=== PATIENT | female | born 1975 | race Two or more races ===

== ENCOUNTER 2020-06-13 21:19 | Emergency (ER) | payer SELFPAY ==
[2020-06-13 21:27] VITALS: BP 141/98; PULSE 117; RESP 18; TEMP 37; O2SAT 99; BMI 28.2
[2020-06-13 22:00] VITALS: PULSE 67; RESP 18; O2SAT 99
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
== END 2020-06-13 22:49 | disposition home or self-care (01) ==
PROVIDERS: Emergency Provider Emergency Medicine Emergency Medical Services; PCP Internal Medicine
DX: F10.920 Alcohol use, unspecified with intoxication, uncomplicated (principal)
CPT/HCPCS: 99284

== ENCOUNTER 2021-09-29 00:48 | Emergency (ER) | payer OTHER, SELFPAY ==
[2021-09-29 00:58] VITALS: BP 130/70; BP 131/76; PULSE 81; PULSE 90; RESP 15; TEMP 36.8; O2SAT 97; BMI 27.8
[2021-09-29 01:35] LABS: Amphetamine Screen Urine Not Detected (Not Detect); Barbiturates, Urine Not Detected (Not Detect); Benzodiazepines Screen Urine Not Detected (Not Detect); Cannabinoid Screen Urine Not Detected (Not Detect); Cocaine Screen Urine Not Detected (Not Detect); Fentanyl, urine Not Detected (Not Detect); Opiate Screen Urine Not Detected (Not Detect); Phencyclidine Screen Urine Not Detected (Not Detect)
--- NOTE | 2021-09-29 02:12 | ED_ITS ---
HPI - Alcohol General Chief Complaint: ETOH/Substance Use Stated Complaint: etoh Time Seen by Provider: 09/29/21 02:05 Mode of arrival: EMS Limitations: altered mental status History of Present Illness HPI narrative: 46-year-old female who was brought to the emergency department by ambulance for evaluation of acute alcohol intoxication. The patient was found outside of a bar and appear to be intoxicated. The police were called an ambulance was dispatched to bring the patient to the emergency department. When she got here she was acutely intoxicated she appeared to be very anxious and could not give a history. She became agitated, she was having difficulty staying on the stretcher. Therefore the patient was given Ativan 2 mg orally for her anxiety and Haldol 10 mg orally for her agitation. She is placed on a cardiac and O2 saturation monitor. Related Data Home Medications Medication Instructions Recorded Confirmed acamprosate 333 mg tablet,delayed 2 tab PO TID 09/29/21 09/29/21 release naltrexone 50 mg tablet 1 tab PO DAILY 09/29/21 09/29/21 Allergies Allergy/AdvReac Type Severity Reaction Status Date / Time No Known Allergies Allergy Verified 09/29/21 02:10 Review of Systems Verdana 4l Review of Systems: Yes all other systems are reviewed and Verdana 4d are negative [facility] Past Medical History Source: unable to obtain (Secondary to alcohol intoxication) Medical History (Updated 09/29/21 @ 08:08 by Kris Kc MD) No known health problems Surgical History No history of previous surgery Social History Social History Alcohol intake: current Alcohol intake frequency: 0-2 drinks per day Alcohol type: beer Patient Tobacco Use Status: Never used Tobacco Use of substances other than those prescribed or required for medical reasons: No Advance Directives: No Advance Directives Information Provided: No Patient : No Physical Exam Verdana 4l Vital Signs: Verdana 4d Verdana 4d Vital Signs: Verdana 4d Verdana 4Bd Last Vital Signs Verdana 4d 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 HENMT: Head: Yes normal to inspection, Yes normocephalic and Yes atraumatic Ears: external ears normal General nose exam: Normal external nose present Face and sinus: Yes normal facial exam Mouth: Normal oral and palatal mucosa present Throat: Yes posterior oropharynx normal Eyes: General: appearance normal, both eyes and all related structures Neck: Neck: Yes normal visual inspection, Yes no lymphadenopathy, Yes trachea midline and Yes supple Chest: Chest palpation & inspection: normal inspection of the chest and normal palpation of entire chest wall Resp: Effort & Inspection: normal respiratory effort and able to speak in complete sentences Auscultation: clear to auscultation bilaterally Cardio: Rate: regular rate Rhythm: regular rhythm Heart sounds: S1 normal heart sound present, S2 normal heart sound present and no murmurs GI: Inspection: Yes normal to inspection Palpation (GI): Soft to palpation, nontender and no guarding Auscultation: normal bowel sounds : General: Yes no CVA tenderness Back/Spine/Pelvis: Back: no CVA tenderness Skin: General skin exam: no rashes or lesions noted Neuro: Other: Patient appears to be anxious and is agitated, she was oriented to person, she is acutely intoxicated, she moves all her extremities symmetrically Extrem: General: Yes normal to inspection Psych: Appearance: grossly normal Affect: Anxious affect present and Other affect and mood findings present (Agitated) Course Course Course Narrative: 46-year-old female who was brought to the emergency department for evaluation of acute alcohol intoxication. Patient was found outside of a bar, police were contacted an ambulance was dispatched to bring the patient to the emergency department for evaluation. On presentation, she was acutely intoxicated she appeared to be very anxious and agitated. Her exam was otherwise unremarkable. Patient was given Ativan 2 mg orally for her anxiety and Haldol 10 mg orally for her agitation. She was placed on a cardiac rehabilitation program director and O2 saturation monitor and observed for 7 hours. During this time she remained stable. She is now awake and alert. She told me that this is happened to her before and she does binge drink. She states she is not interested in getting into a detox program. The patient will be discharged home. MDM - Alcohol Lab Data Labs: Lab Results 09/29/21 Range/Units 01:06 Urine Opiates Screen Not Detected (Not Detect) Urine Fentanyl Screen Not Detected (Not Detect) Ur Barbiturates Screen Not Detected (Not Detect) Ur Phencyclidine Scrn Not Detected (Not Detect) Ur Amphetamines Screen Not Detected (Not Detect) U Benzodiazepines Scrn Not Detected (Not Detect) Urine Cocaine Screen Not Detected (Not Detect) U Marijuana (THC) Screen Not Detected (Not Detect) Discharge Plan Discharge Clinical Impression: Alcoholic intoxication Patient Disposition: Home, Self-Care Instructions: Alcohol Use Disorder (ED), Alcohol Intoxication (ED) Prescriptions: No Action naltrexone 50 mg tablet 1 tab PO DAILY 0RF acamprosate 333 mg tablet,delayed release (DR/EC) 2 tab PO TID 0RF
[2021-09-29] MEDS: HaloperidoL 5 MG TABLET 10 MG PO (02:20)
[2021-09-29] MEDS: diphenhydrAMINE HCL 25 MG TABLET 50 MG PO (02:20)
--- NOTE | 2021-09-29 02:22 | PC.NURSE ---
Medication per Mar and notified Nurse. Will Continue to monitor.
[2021-09-29 04:08] VITALS: PULSE 88; RESP 16; O2SAT 97
[2021-09-29 06:03] VITALS: PULSE 89; RESP 16; O2SAT 98
--- NOTE | 2021-09-29 07:54 | PC.NURSE ---
pt being reassessed by er provider at this time. pt has been sleeping since previous medication administration, per previous shift rn.
== END 2021-09-29 10:33 | disposition home or self-care (01) ==
PROVIDERS: Emergency Provider Emergency Medicine Emergency Medical Services
DX: F10.920 Alcohol use, unspecified with intoxication, uncomplicated (principal); Y90.9 Presence of alcohol in blood, level not specified; R45.1 Restlessness and agitation; F41.9 Anxiety disorder, unspecified
CPT/HCPCS: 80307; 96360; 99285; Q0163

== ENCOUNTER 2021-10-26 01:56 | Emergency (ER) | payer OTHER, SELFPAY ==
[2021-10-26] VITALS (8 sets, daily range): BP systolic 96–184; BP diastolic 56–119; PULSE 77–101; RESP 12–18; TEMP 37; O2SAT 95–100; BMI 27.3
--- NOTE | 2021-10-26 03:44 | ED.ALCOHOL ---
HPI - Alcohol General Chief Complaint: ETOH/Substance Use Stated Complaint: etoh Time Seen by Provider: 10/26/21 03:44 Source: patient Mode of arrival: EMS History of Present Illness HPI narrative: 46-year-old female with extensive history of PTSD as well as alcohol intoxication and patient states that she was drinking tonight because she was unable to sleep due to her prior trauma history. She is brought in by EMS. And has no other acute complaints at this time. She is noted to be restless. Related Data Home Medications Medication Instructions Recorded Confirmed acamprosate 333 mg tablet,delayed 2 tab PO TID 09/29/21 09/29/21 release naltrexone 50 mg tablet 1 tab PO DAILY 09/29/21 09/29/21 Allergies Allergy/AdvReac Type Severity Reaction Status Date / Time No Known Allergies Allergy Verified 09/29/21 02:10 Review of Systems Review of Systems: Pertinent positives and negatives as stated in HPI 10 point review of systems is otherwise negative. PMFSH Past Medical History Source: nursing notes reviewed Medical History No known health problems Surgical History No history of previous surgery Social History Social History Alcohol intake: current Alcohol intake frequency: 0-2 drinks per day Alcohol type: beer Patient Tobacco Use Status: Never used Tobacco Advance Directives: No Advance Directives Information Provided: Yes Physical Exam ED Vital Signs: Vital Signs - 24 hr 10/26/21 02:10 10/26/21 04:13 10/26/21 05:56 Temperature 98.6 F Pulse Rate 77 101 H 79 Respiratory Rate 16 18 12 Blood Pressure 111/78 184/119 H 96/56 L Pulse Oximetry 98 96 98 10/26/21 06:08 Temperature Pulse Rate 78 Respiratory Rate 13 Blood Pressure 106/61 Pulse Oximetry 98 BMI result Body Mass Index 27.3 VITAL SIGNS: Reviewed. GENERAL: Intoxicated, anxious, Well developed, well nourished HEAD: Normocephalic/atraumatic EYES: PERRLA, EOMI OROPHARYNX: no oral lesions noted, posterior pharynx clear LUNGS: Normal breath sounds. No adventitious sounds or accessory muscle use. SpO2<98> CARDIOVASCULAR: Regular rate and rhythm without noted murmurs ABDOMEN: Soft, non-tender, non-distended with bowel sounds. SKIN: Inspection of the skin reveals no rashes NEUROLOGIC: Alert and oriented x 3. Strength and sensation to light touch were grossly intact x 4. Course Course Course Narrative: 46-year-old female with history and clinical presentation consistent with alcohol intoxication secondary to PTSD symptoms. 0405: Patient was extremely agitated and made multiple attempts to leave the emergency department and she is clearly not sober. Patient was noted to be kicking and punching staff, verbally abusive and required chemical restraint. Patient received 2 mg of Ativan as well as 5 mg of Haldol IM. Good results were obtained with spontaneous respiration and patient was placed on the monitor. 0505: Patient resting comfortably, calm and cooperative, arousable. Blood pressure was noted to be low and 1 L of IV fluids was administered. Reevaluation(s) Reevaluation #1: Patient placed in physician observation because the patient needed more time to become sober. At the time observation was started the patient's vital signs were stable, patient is arousable and oriented, neuro: Nonfocal, CV RRR, lungs clear Time: 06:50 Discharge Plan Discharge Clinical Impression: Alcoholic intoxication, Chronic posttraumatic stress disorder Patient Disposition: Still a Patient Prescriptions: No Action naltrexone 50 mg tablet 1 tab PO DAILY 0RF acamprosate 333 mg tablet,delayed release (DR/EC) 2 tab PO TID 0RF
[2021-10-26] MEDS: LORazepam 2 MG/ML VIAL IM (04:05)
[2021-10-26] MEDS: Haloperidol Lactate 5 MG/ML VIAL IM (04:05)
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
--- NOTE | 2021-10-26 05:24 | PC.NURSE ---
As documented on pt's chemical restraint form, pt hypotensive, dr mcclain aware. this rn established PIV and initiated a liter bolus of NS per v/o from dr mcclain.
[2021-10-26] MEDS: 0.9 % Sodium Chloride 1,000 ML 999 ML IV (05:27)
--- NOTE | 2021-10-26 15:00 | MHC.CARE ---
CARE Team met with Pt to discuss mental health and substance use resources. Pt declined interest in resources at this time. Pt denied SI/HI/AH/VH. Pt aware of crisis information.
== END 2021-10-26 13:44 | disposition home or self-care (01) ==
PROVIDERS: Emergency Provider Student in an Organized Health Care Education/Training Program
DX: F10.129 Alcohol abuse with intoxication, unspecified (principal); F43.10 Post-traumatic stress disorder, unspecified; Y90.8 Blood alcohol level of 240 mg/100 ml or more; Z79.899 Other long term (current) drug therapy
CPT/HCPCS: 96360; 96372; 99284; 99285; J2060

== ENCOUNTER 2021-10-30 22:52 | Emergency (ER) | payer OTHER, SELFPAY ==
[2021-10-30 23:06] VITALS: BP 125/81; BP 132/78; PULSE 76; PULSE 80; RESP 16; TEMP 36.6; O2SAT 98; O2SAT 99; BMI 25.9
--- NOTE | 2021-10-30 23:23 | PC.NURSE ---
PT refused to provide urine sample when she went to the bathroom.
--- NOTE | 2021-10-30 23:53 | ED.ALCOHOL ---
HPI - Alcohol General Chief Complaint: ETOH/Substance Use Stated Complaint: etoh Time Seen by Provider: 10/30/21 23:50 History of Present Illness HPI narrative: Patient had few drinks earlier in the democrat was found sleeping in the apartment building hallway patient denies any substance abuse able to ambulate with steady gait no vomiting no injuries family is at home Related Data Home Medications Medication Instructions Recorded Confirmed acamprosate 333 mg tablet,delayed 2 tab PO TID 09/29/21 09/29/21 release naltrexone 50 mg tablet 1 tab PO DAILY 09/29/21 09/29/21 Allergies Allergy/AdvReac Type Severity Reaction Status Date / Time No Known Allergies Allergy Verified 09/29/21 02:10 Review of Systems Review of Systems: Yes all other systems are reviewed and are negative [facility] Past Medical History Medical History No known health problems Surgical History No history of previous surgery Social History Social History Alcohol intake: current Alcohol intake frequency: 0-2 drinks per day Alcohol type: beer Patient Tobacco Use Status: Never used Tobacco Advance Directives: No Patient : No Physical Exam ED Vital Signs: Vital Signs - 24 hr 10/30/21 23:06 Temperature 97.8 F Pulse Rate 76 Respiratory Rate 16 Blood Pressure 125/81 Pulse Oximetry 98 BMI result Body Mass Index 25.9 Appearance: Alert. Oriented X3. No acute distress. etoh++ Eyes: PERRLA, No Nystagmus HEENT: Pharynx normal. Oral Mucosa moist atraumatic normocephalic Neck: Normal inspection. Neck supple. CVS: Normal heart rate and rhythm. Pulses normal. Respiratory: No respiratory distress. Equal air entry bilateral, no wheezing/rales/rhonchi Abdomen: Soft and nontender. Bowel sounds are present, no mass palpable, no CVA tenderness Skin: Skin warm and dry. Normal skin color. Normal skin turgor. Extremities: No lower extremity edema. No calf tenderness Neuro: Oriented X 3. No motor deficit. No sensory deficit.No cerebellar signs , cranial nerves II-XII intact steady gait MDM - Alcohol MDM Narrative Medical decision making narrative: Patient not regular alcoholic intoxicated in the democr[place] patient knows her address family is at home walking is steady gait will get UBER Discharge Plan Discharge Clinical Impression: Alcoholic intoxication Patient Disposition: Home, Self-Care Instructions: Alcohol Intoxication (ED) Additional Instructions: Do not drink over excess amount If you have drinking problem please follow detox Prescriptions: No Action naltrexone 50 mg tablet 1 tab PO DAILY 0RF acamprosate 333 mg tablet,delayed release (DR/EC) 2 tab PO TID 0RF
--- NOTE | 2021-10-30 23:58 | PC.NURSE ---
PT called to have family member pick her up from ED.
== END 2021-10-31 00:04 | disposition home or self-care (01) ==
LOC: HO.ED 23:55
PROVIDERS: Emergency Provider Internal Medicine
DX: F10.220 Alcohol dependence with intoxication, uncomplicated (principal); Y90.9 Presence of alcohol in blood, level not specified
CPT/HCPCS: 99283

== ENCOUNTER 2022-01-08 01:00 | Emergency (ER) | payer OTHER, SELFPAY ==
--- NOTE | ~2022-01-08 | CT_ITS ---
EXAMINATION: NONCONTRAST HEAD CT NONCONTRAST MAXILLOFACIAL CT NONCONTRAST CERVICAL SPINE CT INDICATION INFORMATION: Fall. Intoxicated. COMPARISON: None TECHNIQUE: Separate noncontrast CT examinations of the head, maxillofacial bones, and cervical spine were performed. Coronal and sagittal images were created for each examination at the technologist workstation. This CT examination was performed using dose optimization techniques as appropriate, variously including the following: *Automated exposure control *Adjustment of mA and/or kV according to patient size (this includes techniques or standardized protocols for targeted exams where dose is matched to indication/reason for exam; i.e. extremities or head) *Use of iterative reconstruction technique DLP: 1639 mGy-cm FINDINGS: Head: There is no evidence of acute intracranial hemorrhage or territorial infarction. No abnormal mass effect or midline shift is seen. Crooks to white matter differentiation is well preserved. No extra-axial fluid collections are identified. No hydrocephalus. No significant volume loss. There is no abnormal attenuation within the brain parenchyma. No acute soft tissue abnormality. No calvarial fracture. The mastoid air cells are well aerated. Maxillofacial: No acute maxillofacial fractures are seen. The pterygoid plates are intact. The lamina papyracea are intact. The zygomatic arches are intact. The nasal bone is intact. The orbital rims are intact. The mandible is intact. The frontal, maxillary, ethmoid, and sphenoid sinuses are well aerated. The uncinate process is normal bilaterally. The infundibula and middle meati are patent. The nasal septum is midline. The mandibular heads are well-seated in the condylar fossa. The orbits demonstrate a normal appearance bilaterally. The globes are intact, and there are no suspicious findings to suggest retrobulbar hemorrhage. Cervical spine: There is anatomic alignment of the vertebral bodies and posterior elements. The atlantoaxial and atlantooccipital articulations are intact. Vertebral body heights and intervertebral disc spaces are maintained. No evidence of acute fracture. No prevertebral soft tissue swelling. Visualized portions of the lung apices are unremarkable. The thyroid gland is unremarkable. CT/CT cervical spine wo con IMPRESSION: 1. No acute intracranial finding. 2. No maxillofacial fracture. 3. No fracture or malalignment of the cervical spine.
[2022-01-08 01:13] VITALS: BP 132/86; PULSE 18; RESP 18; O2SAT 98; BMI 27.4
[2022-01-08 01:27] VITALS: BP 120/68; PULSE 90; RESP 18; TEMP 36.3; O2SAT 97
[2022-01-08 01:29] LABS: Glucose, Whole Blood 95 mg/dL (60-115)
--- NOTE | 2022-01-08 02:06 | ED_ITS ---
HPI - Alcohol General Chief Complaint: ETOH/Substance Use Stated Complaint: ETOH Time Seen by Provider: 01/08/22 02:02 Source: patient Mode of arrival: EMS History of Present Illness HPI narrative: This is a 46-year-old female with alcohol use disorder who was noted to be intoxicated at the bar and as staff was trying to call 911 the patient walked out and had a witnessed fall with head strike. On arrival EMS notes that there is a lump to the right forehead. Patient is noted be slurring her words and has an unsteady gait. Related Data Home Medications Medication Instructions Recorded Confirmed acamprosate 333 mg tablet,delayed 2 tab PO TID 09/29/21 09/29/21 release naltrexone 50 mg tablet 1 tab PO DAILY 09/29/21 09/29/21 Allergies Allergy/AdvReac Type Severity Reaction Status Date / Time No Known Allergies Allergy Verified 09/29/21 02:10 Review of Systems Review of Systems: Pertinent positives and negatives as stated in HPI 10 point review of systems otherwise negative. PMFSH Past Medical History Source: nursing notes reviewed Medical History No known health problems Surgical History No history of previous surgery Social History Social History Alcohol intake: current Alcohol intake frequency: 0-2 drinks per day Alcohol type: beer Patient Tobacco Use Status: Never used Tobacco Advance Directives: No Advance Directives Information Provided: No Physical Exam ED Vital Signs: Vital Signs - 24 hr 01/08/22 01:13 01/08/22 01:27 01/08/22 04:00 Temperature 97.4 F Pulse Rate 18 L 90 Respiratory Rate 18 18 20 Blood Pressure 132/86 120/68 Pulse Oximetry 98 97 01/08/22 06:28 Temperature 97.8 F Pulse Rate 77 Respiratory Rate Blood Pressure 126/57 L Pulse Oximetry 98 BMI result Body Mass Index 27.4 VITAL SIGNS: Reviewed. GENERAL: Well developed, well nourished, in no acute distress. HEAD: Normocephalic/contusion right forehead EYES: PERRLA, EOMI EARS: Ext canals without abnormality OROPHARYNX: no oral lesions noted, posterior pharynx clear LUNGS: Normal breath sounds. No adventitious sounds or accessory muscle use. SpO2<98> CARDIOVASCULAR: Regular rate and rhythm without noted murmurs ABDOMEN: Soft, non-tender, non-distended with bowel sounds. SKIN: Inspection of the skin reveals no rashes NEUROLOGIC: Alert and oriented x 4. Strength and sensation to light touch were grossly intact x 4, no neurological deficits other than slurred speech secondary to alcohol intoxication. Course Course Course Narrative: 46-year-old female with history and clinical presentation consistent with alcohol intoxication and on review of all investigations otherwise negative for acute findings. Patient received 25 mg of Librium and required bedside observation differently leaving the ER with a BA L-348. In the morning on re- evaluation patient is noted to have a steady gait, no longer slurring her speech, arrange for her transportation with [employer] service. MDM - Alcohol Lab Data Result diagrams: 01/08/22 03:05 01/08/22 03:05 Labs: Lab Results 01/08/22 01/08/22 01/08/22 Range/Units 01:24 03:05 03:05 WBC 6.3 (4.8-10.8) X10*3/uL RBC 4.09 L (4.20-5.50) X10*6/uL Hgb 14.4 (12.0-16.0) g/dl Hct 40.4 (37.0-47.0) % MCV 98.8 H (80.0-98.0) fL MCH 35.2 H (27.0-33.0) pg MCHC 35.6 H (31.0-35.0) g/dl RDW 12.1 (11.0-16.0) % Plt Count 215 (160-400) X10*3/uL MPV 10.2 (9.4-12.3) fL Immature Gran % (Auto) 0.2 (0.0-0.4) % Neut % (Auto) 55.5 (45-73) % Lymph % (Auto) 34.4 (20-40) % Catron % (Auto) 7.1 (2-11) % Eos % (Auto) 1.7 (0-4) % Baso % (Auto) 1.1 (0-2) % Lymph # (Auto) 2.2 (1.2-4.9) X10*3/uL Catron # (Auto) 0.5 (0.1-1.2) X10*3/uL Eos # (Auto) 0.1 (0.0-0.4) X10*3/uL Baso # (Auto) 0.1 (0.0-0.2) X10*3/uL Abs Immat Gran (auto) 0.01 (0.00-0.03) X10*3/uL Absolute Neuts (auto) 3.5 (2.0-8.3) x10*3/uL Absolute Nucleated RBC 0.000 (0.0-0.012) X10*3/uL Nucleated RBC % (auto) 0.0 (0.0-0.2) /100WBC Sodium 145 (135-145) mmol/L Potassium 4.0 (3.3-5.1) mmol/L Chloride 112 H (96-108) mmol/L Carbon Dioxide 24 (22-29) mmol/L Anion Gap 13 (12-20) BUN 13 (9-16) mg/dL Creatinine 0.96 (0.5-1.4) mg/dL Estim Creat Clear Calc 73.0 Estimated GFR > 60 POC Glucose 95 (60-115) mg/dL Random Glucose 114 (60-115) mg/dL Calcium 9.4 (8.4-10.2) mg/dL Total Bilirubin 0.3 (0.0-1.0) mg/dL AST 21 (5-31) U/L ALT 19 (0-31) U/L Alkaline Phosphatase 111 (39-117) U/L Total Protein 8.1 H (6.5-8.0) g/dL Albumin 4.5 (3.5-5.0) g/dL Lipase 44 (8-78) U/L Ethyl Alcohol mg/dL 01/08/22 Range/Units 03:05 WBC (4.8-10.8) X10*3/uL RBC (4.20-5.50) X10*6/uL Hgb (12.0-16.0) g/dl Hct (37.0-47.0) % MCV (80.0-98.0) fL MCH (27.0-33.0) pg MCHC (31.0-35.0) g/dl RDW (11.0-16.0) % Plt Count (160-400) X10*3/uL MPV (9.4-12.3) fL Immature Gran % (Auto) (0.0-0.4) % Neut % (Auto) (45-73) % Lymph % (Auto) (20-40) % Catron % (Auto) (2-11) % Eos % (Auto) (0-4) % Baso % (Auto) (0-2) % Lymph # (Auto) (1.2-4.9) X10*3/uL Catron # (Auto) (0.1-1.2) X10*3/uL Eos # (Auto) (0.0-0.4) X10*3/uL Baso # (Auto) (0.0-0.2) X10*3/uL Abs Immat Gran (auto) (0.00-0.03) X10*3/uL Absolute Neuts (auto) (2.0-8.3) x10*3/uL Absolute Nucleated RBC (0.0-0.012) X10*3/uL Nucleated RBC % (auto) (0.0-0.2) /100WBC Sodium (135-145) mmol/L Potassium (3.3-5.1) mmol/L Chloride (96-108) mmol/L Carbon Dioxide (22-29) mmol/L Anion Gap (12-20) BUN (9-16) mg/dL Creatinine (0.5-1.4) mg/dL Estim Creat Clear Calc Estimated GFR POC Glucose (60-115) mg/dL Random Glucose (60-115) mg/dL Calcium (8.4-10.2) mg/dL Total Bilirubin (0.0-1.0) mg/dL AST (5-31) U/L ALT (0-31) U/L Alkaline Phosphatase (39-117) U/L Total Protein (6.5-8.0) g/dL Albumin (3.5-5.0) g/dL Lipase (8-78) U/L Ethyl Alcohol 348 H* mg/dL Discharge Plan Discharge Clinical Impression: Alcoholic intoxication Patient Disposition: Home, Self-Care Instructions: Alcohol Intoxication (ED) Additional Instructions: Follow-up with your primary care provider. Prescriptions: No Action naltrexone 50 mg tablet 1 tab PO DAILY 0RF acamprosate 333 mg tablet,delayed release (DR/EC) 2 tab PO TID 0RF
[2022-01-08] MEDS: chlordiazePOXIDE HCl 25 MG CAPSULE PO (02:50)
[2022-01-08 03:09] LABS: MANUAL DIFF FLAG NO
[2022-01-08 03:11] LABS: Basophils Absolute Auto 0.1 X10*3/uL (0.0-0.2); Basophils Percent Auto 1.1 % (0-2); Eosinophils Absolute Auto 0.1 X10*3/uL (0.0-0.4); Eosinophils Percent Auto 1.7 % (0-4); Hematocrit 40.4 % (37.0-47.0); Hemoglobin 14.4 g/dl (12.0-16.0); Imm Gran Abs Auto 0.01 X10*3/uL (0.00-0.03); Imm Gran Pct Auto 0.2 % (0.0-0.4); Lymphocytes Absolute Auto 2.2 X10*3/uL (1.2-4.9); Lymphocytes Percent Auto 34.4 % (20-40); Mean Corpuscular HGB Conc 35.6 g/dl (31.0-35.0); Mean Corpuscular Hemoglobin 35.2 pg (27.0-33.0); Mean Corpuscular Volume 98.8 fL (80.0-98.0); Mean Platelet Volume 10.2 fL (9.4-12.3); Monocytes Absolute Auto 0.5 X10*3/uL (0.1-1.2); Monocytes Percent Auto 7.1 % (2-11); Neutrophils Absolute Auto 3.5 x10*3/uL (2.0-8.3); Neutrophils Percent Auto 55.5 % (45-73); Platelet Count 215 X10*3/uL (160-400); Red Blood Count 4.09 X10*6/uL (4.20-5.50); Red Cell Distribution Width 12.1 % (11.0-16.0); White Blood Count 6.3 X10*3/uL (4.8-10.8)
[2022-01-08 03:26] LABS: Ethanol 348 mg/dL
[2022-01-08 03:31] LABS: Alanine Aminotransferase 19 U/L (0-31); Albumin Level 4.5 g/dL (3.5-5.0); Alkaline Phosphatase 111 U/L (39-117); Anion Gap 13 (12-20); Aspartate Amino Transferase 21 U/L (5-31); Bilirubin Total 0.3 mg/dL (0.0-1.0); Blood Urea Nitrogen 13 mg/dL (9-16); Calcium 9.4 mg/dL (8.4-10.2); Carbon Dioxide 24 mmol/L (22-29); Chloride 112 mmol/L (96-108); Estimated Glomerular Filt Rate > 60; Glucose Random 114 mg/dL (60-115); Lipase 44 U/L (8-78); Sodium 145 mmol/L (135-145); Total Protein 8.1 g/dL (6.5-8.0)
[2022-01-08 04:00] VITALS: RESP 20
[2022-01-08 06:28] VITALS: BP 126/57; PULSE 77; TEMP 36.6; O2SAT 98
--- NOTE | 2022-01-08 07:05 | PC.NURSE ---
Report given to KWABENA Membreno
--- NOTE | 2022-01-08 07:31 | PC.NURSE ---
pt has a sober ride here, speech clear, steady gait, nad, no complaints, wants to leave now, spoke w pt and car pick up driver
== END 2022-01-08 07:35 | disposition home or self-care (01) ==
PROVIDERS: Emergency Provider Student in an Organized Health Care Education/Training Program
DX: F10.129 Alcohol abuse with intoxication, unspecified (principal); M54.2 Cervicalgia; R10.9 Unspecified abdominal pain; R51.9 Headache, unspecified; Y90.8 Blood alcohol level of 240 mg/100 ml or more; Z79.899 Other long term (current) drug therapy
CPT/HCPCS: 70450; 70486; 72125; 80053; 82077; 82947; 83690; 85025; 99284

== ENCOUNTER 2022-01-20 00:48 | Emergency (ER) | payer OTHER, SELFPAY ==
[2022-01-20] MEDS: HaloperidoL 5 MG TABLET PO (01:01)
[2022-01-20] MEDS: LORazepam 1 MG TABLET 2 MG PO (01:01)
[2022-01-20 01:03] VITALS: BP 145/90; PULSE 111; RESP 18; TEMP 36.5; O2SAT 96; BMI 26.0
--- NOTE | 2022-01-20 01:10 | PC.NURSE ---
Patient medicated per emar as noted.
--- NOTE | 2022-01-20 01:19 | PC.NURSE ---
Addendum entered by Rufina Higuera RN 01/20/22 01:20: 01:20 Patient also refusing all medication at this time. BERNARDA Boyer notified. Original Note: Patient refusing blood draws, BERNARDA Boyer at bedside.
[2022-01-20 01:21] VITALS: PULSE 95; RESP 16; O2SAT 96
--- NOTE | 2022-01-20 01:25 | ED_ITS ---
HPI - Alcohol General Chief Complaint: ETOH/Substance Use Stated Complaint: CRISIS/ETOH Time Seen by Provider: 01/20/22 01:01 Source: EMS Mode of arrival: EMS Limitations: altered mental status History of Present Illness HPI narrative: This is a 47-year-old female past medical history significant for alcohol abuse presenting to the emergency department via EMS with acute alcohol intoxication she presents via ambulance in 4 point restraints, kicking, screaming, uncooperative. Patient not providing us with history. When I ask her if she drink she said yes a lot, refusing to answer any questions she keeps telling me why does not matter , and ?I refuse . When I ask her if she has medical complaints she screams no at me. Patient smells like alcohol. According to report from EMS patient was found on the sidewalk resting, no evidence signs of trauma. Patient tells me she did not. MD complaint: alcohol intoxication and alcohol dependence Last drink: Just prior to admission Chronic alcohol use: Yes Previous visits for alcohol intoxication: Yes Recent trauma: Yes Treatments prior to arrival: none Related Data Home Medications Medication Instructions Recorded Confirmed acamprosate 333 mg tablet,delayed 2 tab PO TID 09/29/21 09/29/21 release naltrexone 50 mg tablet 1 tab PO DAILY 09/29/21 09/29/21 Allergies Allergy/AdvReac Type Severity Reaction Status Date / Time No Known Allergies Allergy Verified 09/29/21 02:10 Review of Systems Review of Systems: Yes Unobtainable due to mental status PMFSH Past Medical History Attestation statement: The following information was validated with the patient. Source: old records reviewed and nursing notes reviewed Medical History No known health problems Surgical History No history of previous surgery Social History Social History Alcohol intake: current Alcohol intake frequency: 0-2 drinks per day Alcohol type: beer Patient Tobacco Use Status: Never used Tobacco Physical Exam ED Vital Signs: Vital Signs - 24 hr 01/20/22 01:03 01/20/22 01:21 Temperature 97.7 F Pulse Rate 111 H 95 Respiratory Rate 18 16 Blood Pressure 145/90 H Pulse Oximetry 96 96 BMI result Body Mass Index 26.0 Patient tachycardic likely secondary to agitation, all other vital signs are stable Appearance: Alert.? Oriented X3.? Patient agitated, kicking, screaming, rolling around in the bed. Patient's smells like alcohol. Head: Normocephalic, atraumatic, no step-offs or deformities Eyes: Pupils equal, round and reactive to light.? Neck: Normal inspection.? Neck supple.? CVS: Regular rate, fast rhythm. Pulses normal.? Respiratory: No respiratory distress.? Breath sounds normal.? Abdomen: Soft and nontender.? Skin: Skin warm and dry.? Normal skin color.? Normal skin turgor.? Extremities: No lower extremity edema.? No calf ttp. 5/5 strength to bilateral upper and lower extremities Neuro: Oriented X 3.? No motor deficit.? No sensory deficit. CN 2-12 intact Course Reevaluation(s) Reevaluation #1: COVID negative. Patient continues to refuse laboratory studies and imaging. Sign out to Dr. Garcia. Time: 02:07 MDM - Alcohol [facility] Narrative Medical decision making narrative: 010 47-year-old uncooperative female presents with acute alcohol intoxication, found by police resting on the side walk. No medical complaints, uncooperative with history and physical exam. Physical examination significant for an uncooperative female, kicking, screaming, shouting. Abdomen soft nontender nondistended. Regular rate pass rhythm likely sinus tachycardia. Lungs clear. Neuro exam nonfocal. Plan at this time is basic labs, COVID, waiting for patient to sober up. Patient refusing labs,. Allowing for us to obtain COVID swab on her. Medical Records Attestation: I reviewed the patient's medical records. Lab Data Attestation: I reviewed the patient's lab results. Labs: Lab Results 01/20/22 Range/Units 01:16 COVID-19 ([facility]) Negative (Negative) COVID-19 Clin Com See Note Critical Care Time Critical Care Time Critical Care Time: No Discharge Plan Discharge Clinical Impression: Alcoholic intoxication Patient Disposition: Still a Patient Instructions: Abuse of Alcohol (DC), Abuse of Alcohol (ED), Alcohol Intox ication (ED), Alcohol Use Disorder (ED) Additional Instructions: Take your medications as prescribed. If you were prescribed antibiotics today, it is important that you take your medication to their entirety, do not skip any doses, do not finish them early. Follow-up with your primary care provider this week. Return to the emergency department with new or worsening symptoms. Such as fevers, chills, chest pain, shortness of breath, nausea, vomiting, dizziness, headache, vision changes, lethargy, weakness In case of emergency call 911 You do not want detox you told me. But if you change your mind please reach out to detox centers in the area. I put [employer] information on your discharge as well in case you need them. Prescriptions: No Action naltrexone 50 mg tablet 1 tab PO DAILY 0RF acamprosate 333 mg tablet,delayed release (DR/EC) 2 tab PO TID 0RF Referrals: [facility] [Provider Group] - 2 days
[2022-01-20 01:35] LABS: COVID-19 Test Negative (Negative)
[2022-01-20 02:00] VITALS: BP 145/90; PULSE 95; RESP 16; O2SAT 96
--- NOTE | 2022-01-20 03:07 | PC.NURSE ---
Patient is resting now but refused the CAT scan of her head without contrast. PA aware.
== END 2022-01-20 07:35 | disposition home or self-care (01) ==
PROVIDERS: Physician Assistant; Emergency Provider Emergency Medicine Emergency Medical Services
DX: F10.24 Alcohol dependence with alcohol-induced mood disorder (principal); Y90.8 Blood alcohol level of 240 mg/100 ml or more; Z20.822 Contact with and (suspected) exposure to COVID-19; Z79.899 Other long term (current) drug therapy
CPT/HCPCS: 87635; 99284

== ENCOUNTER 2022-01-25 07:27 | Emergency (ER) | payer OTHER, SELFPAY ==
[2022-01-25 07:46] VITALS: BP 151/94; PULSE 109; RESP 18; O2SAT 98; BMI 28.3
--- NOTE | 2022-01-25 08:00 | PC.NURSE ---
Unwilling to participate in [place] screening at this time. Will re-assess when pt is more cooperative.
[2022-01-25] MEDS: Acetaminophen 325 MG TABLET PO (09:37)
--- NOTE | 2022-01-25 10:32 | ED.PSYCH ---
HPI - Psych General Chief Complaint: Psychiatric Symptoms Stated Complaint: anxiety Time Seen by Provider: 01/25/22 08:41 Source: patient Mode of arrival: EMS History of Present Illness HPI Narrative: 47-year-old female with known use dependence disorder is brought in by EMS after being in at . She was found by the place laying on the ground slurring her words, she spent the night in police custody and was discharged to the ambulance due to ?anxiety and the need to take her seizure medications?. Patient reports that she needs to do something about her alcohol because she has children at home and wants to be there for them. She is afraid to go home because there is alcohol in the house. Related Data Home Medications Medication Instructions Recorded Confirmed escitalopram oxalate 20 mg tablet 1 tab PO DAILY 01/25/22 01/25/22 (Lexapro) hydroxyzine HCl 10 mg tablet 1 tab PO TID PRN 01/25/22 01/25/22 Allergies Allergy/AdvReac Type Severity Reaction Status Date / Time No Known Allergies Allergy Verified 09/29/21 02:10 Review of Systems Review of Systems: Pertinent positives and negatives as stated in HPI 10 point review of history is otherwise negative. PMFSH Past Medical History Source: nursing notes reviewed Medical History No known health problems Surgical History No history of previous surgery Social History Social History Alcohol intake: current Alcohol intake frequency: 3 or more drinks per day Alcohol type: beer Patient Tobacco Use Status: Never used Tobacco Advance Directives: No Advance Directives Information Provided: Yes Physical Exam Vital Signs: Vital Signs: Last Vital Signs Temp 97.7 F 01/25/22 15:29 Pulse 93 01/25/22 15:29 Resp 14 01/25/22 15:29 BP 140/78 H 01/25/22 15:29 Pulse Ox 96 01/25/22 15:29 BMI result Body Mass Index 28.3 VITAL SIGNS: Reviewed. GENERAL: Well developed, well nourished, in no acute distress. HEAD: Normocephalic/atraumatic EYES: PERRLA, EOMI EARS: Ext canals without abnormality OROPHARYNX: no oral lesions noted, posterior pharynx clear LUNGS: Normal breath sounds. No adventitious sounds or accessory muscle use. SpO2<98> CARDIOVASCULAR: Regular rate and rhythm without noted murmurs ABDOMEN: Soft, non-tender, non-distended with bowel sounds. MUSCULOSKELETAL: No tenderness, deformities, or effusions noted on gross inspection. EXTREMITIES: No cyanosis, clubbing or edema. SKIN: Inspection of the skin reveals no rashes NEUROLOGIC: Alert and oriented x 4. Strength and sensation to light touch were grossly intact x 4, cranial nerves 2-12 are grossly intact. PSYCH: Anxious, tearful Course Course Course Narrative: 47-year-old female with history and clinical presentation consistent with her underlying alcohol use disorder as well as alcohol intoxication and now agrees to entering into detox. She currently is scoring CIWA-3. Nothing heard back from [facility] your [place] and patient now wishes to leave and go home, she is not suicidal and is not a harm to herself or others and cannot be held against her will. She is currently hemodynamically stable will be discharged home. MDM - Psych Lab Data Labs: Lab Results 01/25/22 01/25/22 01/25/22 Range/Units 09:48 12:28 12:28 Urine Color YELLOW Urine Appearance CLOUDY Urine pH 6.0 (5.0-8.0) Ur Specific [place] 1.020 (1.005-1.025) Urine Protein NEG (NEG-TRACE) MG/DL Urine Glucose (UA) NEG (NEG) MG/DL Urine Ketones 15 (NEG) MG/DL Urine Blood TRACE (NEG) Urine Nitrite POS H (NEG) Ur Leukocyte Esterase 1+ H (NEG) Urine RBC 1-4 (0) /HPF Urine WBC 5-9 H (0-4) /HPF Ur Squamous Epith Cells 3+ /LPF Urine Bacteria 1+ /LPF Urine Test NEGATIVE (NEGATIVE) Urine Opiates Screen (Not Detect) Urine Fentanyl Screen (Not Detect) Ur Barbiturates Screen (Not Detect) Ur Phencyclidine Scrn (Not Detect) Ur Amphetamines Screen (Not Detect) U Benzodiazepines Scrn (Not Detect) Urine Cocaine Screen (Not Detect) U Marijuana (THC) Screen (Not Detect) Ethyl Alcohol 169 mg/dL 01/25/22 Range/Units 12:28 Urine Color Urine Appearance Urine pH (5.0-8.0) Ur Specific [place] (1.005-1.025) Urine Protein (NEG-TRACE) MG/DL Urine Glucose (UA) (NEG) MG/DL Urine Ketones (NEG) MG/DL Urine Blood (NEG) Urine Nitrite (NEG) Ur Leukocyte Esterase (NEG) Urine RBC (0) /HPF Urine WBC (0-4) /HPF Ur Squamous Epith Cells /LPF Urine Bacteria /LPF Urine Test (NEGATIVE) Urine Opiates Screen Not Detected (Not Detect) Urine Fentanyl Screen Not Detected (Not Detect) Ur Barbiturates Screen Not Detected (Not Detect) Ur Phencyclidine Scrn Not Detected (Not Detect) Ur Amphetamines Screen Not Detected (Not Detect) U Benzodiazepines Scrn Not Detected (Not Detect) Urine Cocaine Screen Not Detected (Not Detect) U Marijuana (THC) Screen Not Detected (Not Detect) Ethyl Alcohol mg/dL Discharge Plan Discharge Clinical Impression: Alcohol use disorder, severe, dependence, Alcohol intoxication, Anxiety Patient Disposition: Home, Self-Care Instructions: Alcohol Intoxication (ED), Alcohol Use Disorder (ED), Anxiety (ED) Additional Instructions: 1. Resume all home medications as prescribed. Return to the ER for any acute worsening of your symptoms. Prescriptions: No Action hydroxyzine HCl 10 mg tablet 1 tab PO TID PRN (Reason: Anxiety) 0RF escitalopram oxalate [Lexapro] 20 mg tablet 1 tab PO DAILY 0RF Referrals: Nora Fregoso MD [Primary Care Provider] -
[2022-01-25 11:51] LABS: Ethanol 169 mg/dL
[2022-01-25 12:46] LABS: Appearance Urine CLOUDY; Color Urine YELLOW; Glucose Urine UA NEG (NEG); Leukocyte Esterase Urine 1+ (NEG); Nitrite Urine POS (NEG); UACC Culture Trigger YES; Urine Blood TRACE (NEG); Urine Ketones 15 MG/DL (NEG); Urine Protein NEG (NEG-TRACE)
[2022-01-25 12:48] LABS: UPreg QC Valid YES; Urine Pregnancy NEGATIVE (NEGATIVE)
[2022-01-25 12:51] LABS: Squamous Epithelial Cell Urine 3+ /LPF
--- NOTE | 2022-01-25 12:51 | MHC.CARE ---
CARE Team met with Pt who presented to [facility] from [facility] custody due to alcohol intoxication. Pt reports problematic alcohol use and states if she goes home shes just going to do the same thing and worried she is stuck in this cycle. Pt is open to recovery support team for substance use resources.
[2022-01-25 12:52] LABS: Bacteria Urine 1+ /LPF
[2022-01-25 12:58] LABS: Amphetamine Screen Urine Not Detected (Not Detect); Barbiturates, Urine Not Detected (Not Detect); Benzodiazepines Screen Urine Not Detected (Not Detect); Cannabinoid Screen Urine Not Detected (Not Detect); Cocaine Screen Urine Not Detected (Not Detect); Fentanyl, urine Not Detected (Not Detect); Opiate Screen Urine Not Detected (Not Detect); Phencyclidine Screen Urine Not Detected (Not Detect)
--- NOTE | 2022-01-25 14:44 | MHC.RECOVSUP ---
Recovery Support note: Patient is a 47 year old Botswanan speaking female who presented to [facility] ED after police found her intoxicated in the community. Patient was seen by CARE Team and referred to this procedure writer for assistance getting into [facility]. Patient referred to [facility] and completed phone intake. This procedure writer is awaiting follow up from [facility] to confirm that patient has a bed. Discussed case with ED provider and RN.
[2022-01-25] MEDS: chlordiazePOXIDE HCl 5 MG CAPSULE 10 MG PO (14:49)
[2022-01-25 15:29] VITALS: BP 140/78; PULSE 93; RESP 14; TEMP 36.5; O2SAT 96
== END 2022-01-25 16:26 | disposition home or self-care (01) ==
PROVIDERS: Emergency Provider Student in an Organized Health Care Education/Training Program; PCP Internal Medicine
DX: F10.229 Alcohol dependence with intoxication, unspecified (principal); Y90.6 Blood alcohol level of 120-199 mg/100 ml; F41.9 Anxiety disorder, unspecified; Z79.899 Other long term (current) drug therapy
CPT/HCPCS: 36415; 80307; 81001; 81025; 82077; 87086; 87088; 87186; 99284

== ENCOUNTER → 2023-08-06 10:15 | Outpatient (BNV) | payer OTHER, SELFPAY | PROVIDERS: Visit Provider Psychiatry & Neurology Psychiatry | DX: F10.21 Alcohol dependence, in remission (principal); F31.9 Bipolar disorder, unspecified; F41.1 Generalized anxiety disorder | CPT/HCPCS: 90792; 99213 ==

== ENCOUNTER 2023-08-14 13:00 | Outpatient (RCR) | payer OTHER, SELFPAY ==
[2023-07-30 13:45] VITALS: BMI 29.9
[2023-07-30 14:46] VITALS: BP 117/82; PULSE 68; TEMP 36.8
--- NOTE | 2023-07-30 15:11 | PC.ADMIT ---
Patient is a 48 year old female who was referred to [facility] by her therapist d/t increased depression with passive SI (no plan or intent) and anxiety. Analisa is also struggling with ETOH use. Patient reports she drinks ETOH on the weekends drinking a bottle of wine or 1/2 bottle of Vodka. Patient is on MAT with Acamprosate however does not appear to be taking consistently. Medication education provided. Patient also attending AA meetings via zoom for more support. According to [facility] patient has a history of DUI's in 1999, 2011, and 2021 and lost her license as a result. Patient is alert and oriented x4. Calm and cooperative. Denied SI currently. I gave Analisa a copy of her safety plan if needed and reviewed it with her. Medications reconciled with patient and patient's pharmacy. She reports she does not take medications consistently and has not started some of her medications including Prazosin, Lexapro, and never picked up Abilify from the pharmacy. She plans on discussing medications with [facility] prescriber. Medication education provided.
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
--- NOTE | 2023-07-31 18:49 | HO.PHP ---
The client's case was reviewed and opened in treatment team.
--- NOTE | 2023-08-10 09:09 | P.PNPSP_ITS ---
Subjective Subjective Date of Service: 08/08/23 Reason For Visit: anxiety,depression,AUD Interim History: Patient seen for follow-up today. No acute concerns or issues. Reports having had a bad day yesterday, didn't make it to the program. She got up to get her kids ready for school and then went back to bed. She denies any alcohol use, said she slept until noon. Had a crying spell or two yesterday. Indicates her mood is still up and down . She confides she still has not started on the mood stabilizer. She says she picked it up this morning and plans to start tonight. Overall today is a better day, perhaps it is because she got enough sleep last night. I ask if she has any reservations about the medication which may be causing her delays with starting. (She started the program on 07/31 and her outpatient provider had already prescribed the medication for her, it's been almost 2 weeks and has not started on it). She asks about potential weight gain and cites this as a concern. WE discuss other options as well but in balance the risk for weight gain is lower than with other mood stabilizer in that class, and something we can certainly monitor. Could offer metformin or other options to mitigate weight gain, also could switch to another agent, however she may only require a small dose since it's being used in conjunction with an SSRI so I dont anticipate the need for a high dose, likely will remain at 5 mg or less, if tolerated. She reports alcohol abstainenance is good . Last use was the weekend prior to starting at [facility]. She denies any thoughts of harming herself or others. She will speak with Laina about printing up [facility] paperwork to give to this provider to get filled out, which is due on 09/13, however she anticipates her last day at [facility] next week. Medication Compliance: Yes Side effects from medications: No Attending Groups: Yes Review of Systems Acute medical concerns: No Mental Status Exam Mental Status Exam Narrative: Alert, oriented, in no acute distress. Casually dressed. Groomed.? Normal gait, no tics/tremors/dyskinesia, no psychomotor agitation or neurovegetative retardation. Calm, cooperative, forthcoming.? Eye contact. Mood is less depressed. Affect constricted, moments of brightening/ irritability.? Speech is normal rate, volume, prosody. No latency or pressured speech. Thought process is linaer, coherent without illogicality or FOI/VIKRAM. Thought content relevant to stressors. No gross evidence of psychosis. No thoughts of harming self or others. Cognition grossly intact. Sensorium clear. Insight fair/good. Judgment fair but adequate. Diagnostics Vital Signs (24Hr): BMI result Body Mass Index 29.9 Assessment & Plan Assessment & Plan (1) Alcohol use disorder, severe, in early remission, dependence: Status: Acute Code(s): F10.21 - Alcohol dependence, in remission (2) Bipolar affective disorder: Qualifiers: Active/Remission status: remission status unspecified Qualified Code(s): F31.9 - Bipolar disorder, unspecified Status: Acute Code(s): F31.9 - Bipolar disorder, unspecified (3) Generalized anxiety disorder: Status: Acute Code(s): F41.1 - Generalized anxiety disorder Patient educated on: diagnosis, medication risk/benefits and substance abuse Informed Consent: understands Reason for contiued partial hosp. stay Substantial Risk for: inability to function, rapid decompensation and med/psych decompensation Certification I certify that partial hospital treatment is medically necessary due to the symptoms and problems resulting from the patient's mental illness and the failure to treat the patient at the partial hospital level of care would likely result in the patient requiring inpatient psychiatric care which could not be prevented at a less intensive level of care. Total time managing care of this patient today _30___ minutes. Discharge Plan Discharge Attending provider: Karley Gracia Medications: Continued hydroxyzine HCl 10 mg tablet 1 tab PO TID PRN (Reason: Anxiety) escitalopram oxalate [Lexapro] 20 mg tablet 1 tab PO DAILY Patient Comments: Patient has not started. melatonin 3 mg Tablet 3 - 6 mg PO BEDTIME PRN (Reason: Insomnia) Rx Instructions: 1-2 tabs at Bedtime. prazosin 2 mg capsule 2 mg PO BEDTIME Patient Comments: Patient has not started. acamprosate 333 mg tablet,delayed release (DR/EC) 666 mg PO TID aripiprazole 2 mg Tablet 2 mg PO DAILY Patient Comments: Patient has not started. Stand Alone Forms: Patient Portal Discharge page
--- NOTE | 2023-08-11 18:24 | HO.PHP ---
At roughly 8:30am pt called to say she would not be in today, Pt was tearful that she could not reschedule her appt but reported she was safe. Asked if she would be able to stay longer at [facility] and not discharge tomorrow to make up her missed days. Binder Operator will meet with pt tomorrow to assess.
--- NOTE | 2023-08-13 15:23 | HO.PHP ---
[facility] staff member met with Analisa after group 2 due to her stating she was triggered by a group members statements. Analisa shared how she has DCF involved and expressed her concerns around them taking away her children. [facility] staff member informed Analisa that DCF is there to help support the families and it doesn't always necessarily mean a removal is going to occur. Analisa shared that she has a good relationship with her DCF worker and has been doing everything that she has asked. Analisa also talked about feeling this group members pain and it reminded her of another situation regarding family members. [facility] staff member empathized with Analisa and disclosed that groups can sometimes bring up feelings that were being surpressed for some time. Analisa agreed. Analisa talked about feeling bad for this group member and wanting to support this individual. [facility] staff member reminded Analisa that everyone is here for there own reasons and encouraged her to continue to work on what brought her to the program. Analisa was receptive. Analisa was able to regulate. Analisa expressed no concerns around safety and was able to return to group.
--- NOTE | 2023-08-14 22:15 | P.PNPSP_ITS ---
Subjective Subjective Date of Service: 08/14/23 Reason For Visit: anxiety,depression,AUD Interim History: Patient seen for follow-up anticipates discharge at the end of the day. She reports feeling better. Today feeling relaxed which is suprising since she has some anxiety about leaving program. [facility] has been helpful having structure, attending groups. She will be going to [facility] at [facility] intakeis on . She is waiting to hear back from her provider's office at [facility]. Dr. Alberto. There was some insurance issue they are trying to sort out at [facility] where she sees an addiction counselor. She denies any SI. She continues in early remission from alcohol. She deneis cravings. DCF continues to be involved at home. No complaints or concerns at this time. [facility] paperwork was filled out and returned to patient. Medication Compliance: Yes Side effects from medications: No Attending Groups: Yes Review of Systems Acute medical concerns: No Mental Status Exam Mental Status Exam Narrative: Alert, oriented, in no acute distress. Casually dressed. Groomed.? Calm, cooperative, forthcoming.? Eye contact. Mood fine . Affect reactive.? Speech is normal. Goal-directed, future-oriented. No gross evidence of psychosis. No thoughts of harming self or others. Cognition grossly intact. Sensorium clear. Insight fair/good. Judgment fair but adequate. Diagnostics Vital Signs (24Hr): BMI result Body Mass Index 29.9 Assessment & Plan Assessment & Plan (1) Alcohol use disorder, severe, in early remission, dependence: Status: Acute Code(s): F10.21 - Alcohol dependence, in remission (2) Bipolar affective disorder: Qualifiers: Active/Remission status: remission status unspecified Qualified Code(s): F31.9 - Bipolar disorder, unspecified Status: Acute Code(s): F31.9 - Bipolar disorder, unspecified (3) Generalized anxiety disorder: Status: Acute Code(s): F41.1 - Generalized anxiety disorder Plan Discharge from [facility] cotniue acamprosate 666 mg qd continue ABilify 2 mg qd continue Lexapro 20 mg qd cotninue prazosin 2 mg QHS continue hydroxyzine 10 mg qd PRN anxiety, 20 mg QHS prn sleep continue melatonin 3-6 mg qhs defer further medication management to outpatient provider Patient educated on: diagnosis, medication risk/benefits and substance abuse Informed Consent: understands Reason for contiued partial hosp. stay Substantial Risk for: stable for discharge Certification I certify that partial hospital treatment is medically necessary due to the symptoms and problems resulting from the patient's mental illness and the failure to treat the patient at the partial hospital level of care would likely result in the patient requiring inpatient psychiatric care which could not be prevented at a less intensive level of care. Total time managing care of this patient today _30___ minutes. Discharge Plan Discharge Attending provider: Karley Gracia Medications: Continued melatonin 3 mg Tablet 3 - 6 mg PO BEDTIME PRN (Reason: Insomnia) Rx Instructions: 1-2 tabs at Bedtime. prazosin 2 mg capsule 2 mg PO BEDTIME 15 Days Qty: 15 1RF acamprosate 333 mg tablet,delayed release (DR/EC) 666 mg PO TID 15 Days Qty: 45 1RF aripiprazole 2 mg Tablet 2 mg PO DAILY 15 Days Qty: 15 1RF Patient Comments: Patient has not started. Changed hydroxyzine HCl 10 mg tablet See Rx Instructions .ROUTE .COMPLEX PRN (Reason: Anxiety) Qty: 30 0RF Rx Instructions: take 1 tablet po daily as needed for anxiety; take 2 tablets po daily at bedtime as needed for sleep escitalopram oxalate [Lexapro] 20 mg tablet 20 mg PO DAILY 15 Days Qty: 15 1RF Patient Comments: Patient has not started. Stand Alone Forms: Patient Portal Discharge page Patient Education: Depression (DC), Alcohol Use Disorder (DC)
== END 2023-08-14 23:59 | disposition home or self-care (01) ==
LOC: HO.PHPA 13:00
PROVIDERS: Visit Provider Psychiatry & Neurology Psychiatry
DX: F31.9 Bipolar disorder, unspecified (principal); F41.1 Generalized anxiety disorder; F10.21 Alcohol dependence, in remission; Z79.899 Other long term (current) drug therapy
CPT/HCPCS: 90791; 90853

== ENCOUNTER 2024-08-07 13:58 | Emergency (ER) | payer OTHER, SELFPAY ==
[2024-08-07] VITALS (17 sets, daily range): BP systolic 133–176; BP diastolic 82–98; PULSE 66–99; RESP 10–24; TEMP 35.5–36.8; O2SAT 96–100; BMI 25.8
--- NOTE | ~2024-08-07 | CT_ITS ---
EXAMINATION: CT HEAD WITHOUT CONTRAST CT CERVICAL SPINE WITHOUT CONTRAST CLINICAL INFORMATION: Full COMPARISON: None. TECHNIQUE: Contiguous axial imaging was performed from the skull base to vertex without intravenous administration of contrast. In addition, helical noncontrast CT imaging was acquired through the cervical spine and source images were reviewed along with axial reconstructions and sagittal and coronal MPRs. DOSE LOWERING TECHNIQUES: This CT examination was performed using dose optimization techniques as appropriate, variously including the following: - Automated exposure control - Adjustment of mA and/or kV according to patient size (this includes techniques or standardized protocols for targeted exams were dose is matched to indication/reason for exam; i.e. extremities or head) - Use of degenerative construction technique DLP: 1879 mGy-cm FINDINGS: HEAD: No intracranial mass, hemorrhage, or midline shift is visualized. The ventricles and sulci are age-appropriate. No extra-axial collections are identified. The paranasal sinuses are well aerated. Calcification in the basal ganglia. CERVICAL SPINE: There is no evidence of acute cervical spine fracture. Vertebral bodies remain normal in height, intervertebral disc spaces are preserved, and alignment is anatomic. No pre- or paravertebral soft tissue abnormality is identified. Limited assessment of the lung apices is unremarkable. CT/CT cervical spine wo IV con IMPRESSION: 1. No acute intracranial pathology. 2. No CT evidence of acute cervical spine fracture or traumatic subluxation Electronically signed by: Cris Huerta MD 08/07/2024 05:02 PM [facility] [place]
--- NOTE | ~2024-08-07 | CT_ITS ---
EXAMINATION: CT CHEST WITHOUT CONTRAST CLINICAL INFORMATION: Right posterior rib and scapular pain. COMPARISON: Right shoulder 08/07/2024 TECHNIQUE: Multidetector volumetric CT imaging of the chest was done. Axial MIP volume rendering provided. Sagittal and coronal reformatted images were obtained. This CT examination was performed using dose optimization techniques as appropriate, variously including the following: *Automated exposure control *Adjustment of mA and/or kV according to patient size (this includes techniques or standardized protocols for targeted exams where dose is matched to indication/reason for exam; i.e. 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 Significant overlying metallic artifact. LUNGS: No endobronchial lesion. No pneumothorax. Minor dependent atelectasis. No suspicious mass or consolidation. Scattered 2-3 mm micronodules. Left perifissural nodules along the major fissure. No specific follow-up required. MEDIASTINUM: No mass or adenopathy. CORONARY ARTERY CALCIFICATION: None visualized on this study. PLEURA: There is no pleural effusion. No pleural mass or thickening. AXILLA: No lymphadenopathy. UPPER ABDOMEN: Unremarkable. OSSEOUS STRUCTURES: Acute right scapular coracoid process fracture. CT/CT chest wo IV con IMPRESSION: 1. Acute right coracoid process fracture of the scapula. 2. Relocation of right shoulder dislocation. 3. No acute cardiopulmonary process detected. Fleischner guidelines were followed. Electronically signed by: Jay Davila MD 08/07/2024 05:47 PM [facility] [place]
--- NOTE | ~2024-08-07 | XR_ITS ---
EXAMINATION: XR SHOULDER, RIGHT CLINICAL INFORMATION: pain s/p fall COMPARISON: None available. TECHNIQUE: 3 views of the right shoulder FINDINGS: There is anterior inferior shoulder dislocation. Do not see a fracture. Acromioclavicular joint normal. XR/XR shoulder RT min 2V IMPRESSION: Anterior inferior shoulder dislocation. Electronically signed by: Shayne Benitez MD 08/07/2024 05:28 PM EST
--- NOTE | ~2024-08-07 | CT_ITS ---
EXAMINATION: CT HEAD WITHOUT CONTRAST CT CERVICAL SPINE WITHOUT CONTRAST CLINICAL INFORMATION: Full COMPARISON: None. TECHNIQUE: Contiguous axial imaging was performed from the skull base to vertex without intravenous administration of contrast. In addition, helical noncontrast CT imaging was acquired through the cervical spine and source images were reviewed along with axial reconstructions and sagittal and coronal MPRs. DOSE LOWERING TECHNIQUES: This CT examination was performed using dose optimization techniques as appropriate, variously including the following: - Automated exposure control - Adjustment of mA and/or kV according to patient size (this includes techniques or standardized protocols for targeted exams were dose is matched to indication/reason for exam; i.e. extremities or head) - Use of degenerative construction technique DLP: 1879 mGy-cm FINDINGS: HEAD: No intracranial mass, hemorrhage, or midline shift is visualized. The ventricles and sulci are age-appropriate. No extra-axial collections are identified. The paranasal sinuses are well aerated. Calcification in the basal ganglia. CERVICAL SPINE: There is no evidence of acute cervical spine fracture. Vertebral bodies remain normal in height, intervertebral disc spaces are preserved, and alignment is anatomic. No pre- or paravertebral soft tissue abnormality is identified. Limited assessment of the lung apices is unremarkable. CT/CT head/brain wo IV con IMPRESSION: 1. No acute intracranial pathology. 2. No CT evidence of acute cervical spine fracture or traumatic subluxation Electronically signed by: Cris Huerta MD 08/07/2024 05:02 PM [facility]
--- NOTE | ~2024-08-07 | XR_ITS ---
EXAMINATION: XR SHOULDER, RIGHT CLINICAL INFORMATION: post reduction COMPARISON: Prior x-ray of the right shoulder earlier same day TECHNIQUE: Portable AP and scapular Y views of the right shoulder. FINDINGS: As noted dislocation has been reduced. Normal anatomic alignment of the glenohumeral joint. Acromioclavicular joint normal. No fracture detected XR/XR shoulder RT min 2V IMPRESSION: Reduction of previously noted dislocation. Electronically signed by: Shayne Benitez MD 08/07/2024 06:49 PM [facility]
--- NOTE | 2024-08-07 14:34 | ED.FALL ---
HPI - Fall General Chief Complaint: Fall Stated Complaint: fall down stairs, dislocated shoulder ? Time Seen by Provider: 08/07/24 14:43 Source: patient and old records reviewed Mode of arrival: ambulatory Limitations: no limitations History of Present Illness ED Provider: HENOK MAGALLON Narrative: 49 yo female with PMH of alcohol use disorder, bipolar, anxiety and depression who notes she heard a loud noise in the washing machine so she went down the stairs quickly and fell with about 4 steps left. She tried to reach up to the railing with her dominant R hand and then notes her body kept going she felt a pop in the shoulder. She denies hitting head or LOC. She has pain on the posterior rib /scapula area. She is not on blood thinners. 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) Fall from: standing Fall witnessed: no Place fall occurred: home Loss of consciousness: none Prolonged down time: no Symptoms prior to fall: none Context: tripped/slipped Location of injury - extremities: right: shoulder Severity: severe Quality: sharp Associated symptoms (after fall): denies Related Data Home Medications ?Medication ?Instructions ?Recorded ?Confirmed melatonin 3 mg tablet 3 - 6 mg PO BEDTIME PRN Insomnia 07/30/23 07/30/23 Previous Rx's ?Medication ?Instructions ?Recorded acamprosate 333 mg tablet,delayed 666 mg (2 x 333 mg) PO TID 15 days 08/14/23 release #45 tabs aripiprazole 2 mg tablet 2 mg PO DAILY 15 days #15 tabs 08/14/23 escitalopram oxalate 20 mg tablet 20 mg PO DAILY 15 days #15 tabs 08/14/23 (Lexapro) hydroxyzine HCl 10 mg tablet See Rx Instructions .Route 08/14/23 .COMPLEX PRN Anxiety #30 tabs prazosin 2 mg capsule 2 mg PO BEDTIME 15 days #15 caps 08/14/23 Allergies Allergy/AdvReac Type Severity Reaction Status Date / Time No Known Allergies Allergy Verified 08/07/24 14:23 Review of Systems Review of Systems: Constitutional : No Fever, No Chills ENT/Mouth : No Ear Pain, No Hoarseness, No sore throat Eyes: No Eye Pain, No Swelling, No Redness, No Foreign Body Cardiovascular : No Chest Pain, No SOB Respiratory : No Cough, No Dyspnea Gastrointestinal : No Nausea, No Vomiting, No Diarrhea, No abdominal Pain Genitourinary : No Dysuria, No Hematuria Musculoskeletal : positive joint pain, No Myalgias, No Joint Swelling Skin : No Skin lacerations, No rash Neuro : No Weakness, No Numbness, No Loss of Consciousness, No Dizziness, No Headache All other systems reviewed and are negative [facility] Past Medical History Attestation statement: The following information was validated with the patient. Source: old records reviewed Medical History delivery delivered Menopause No known health problems Surgical History No history of previous surgery Social History Social History Household Members: Significant Other and Children Alcohol intake: current Alcohol intake frequency: 3 or more drinks per day Alcohol type: beer Patient Tobacco Use Status: Never used Tobacco Smoked in Last 30 Days: No Use of substances other than those prescribed or required for medical reasons: No Advance Directives: No Patient : No Physical Exam Vital Signs: Vital Signs: Last Vital Signs Temp 97.7 F 08/07/24 20:14 Pulse 68 08/07/24 20:14 Resp 14 08/07/24 20:14 BP 133/85 08/07/24 20:14 Pulse Ox 98 08/07/24 20:14 O2 Del Method Room Air 08/07/24 20:14 O2 Flow Rate 2 08/07/24 15:49 Oxygen Flow Rate 2 08/07/24 16:34 BMI result Body Mass Index 25.8 Appearance: Alert. Oriented X3. in pain mild acute distress. Eyes: Pupils equal, round and reactive to light. ENT: Pharynx normal. atraumatic Neck: Normal inspection. Neck supple. denies midline ttp Back: ttp along scapula area CVS: Normal heart rate and rhythm. Pulses normal. Respiratory: No respiratory distress. Breath sounds normal. Abdomen: Soft and nontender. Skin: Skin warm and dry. Normal skin color. Normal skin turgor. Extremities: No lower extremity edema. R shoulder obv deformity distal NV intact Neuro: Oriented X 3. No motor deficit. No sensory deficit. Course Course Course Narrative: This is an RME: Additional HPI, ROS, PE not included below will be deferred to primary provider. RME assessment and note performed by: Sammie Harmon PA-C This is a 49-year-old female who presents emergency department for right shoulder pain. Patient states that she fell down 2 or 3 steps and landed onto her shoulder. Radial pulse 2+, able to move fingers however right shoulder with deformity noted question dislocation Plan: R shoulder xray Reevaluation(s) Reevaluation #1: DR. Gurrola's Progress note: I assumed care for this patient at 16:[address] Orozco, S/p fall with right shoulder dislocation, s/p conscious sedation and right shoulder successful reduction patient now is on sling, CT head/cervical spine/chest reveals:. Acute right coracoid process fracture of the scapula. 2. Relocation of right shoulder dislocation. 3. No acute cardiopulmonary process detected. Satisfactory right shoulder reduction, neurovascular intact, patient is sitting in bed, AAO x3 able to tolerate p.o. intake calling family to come and pick her up. Will discharge to follow-up with PCP. Time: 20:48 Medications Administered Discontinued Medications Generic Name Dose Route Start Last Admin Trade Name Freq PRN Reason Stop Dose Admin Etomidate 7 mg 08/07/24 15:25 08/07/24 15:21 Etomidate 20 Mg/10 Ml Vial IVPUSH 08/07/24 15:26 7 mg ONCE ONE Administration Hydromorphone HCl 1 mg 08/07/24 14:45 08/07/24 14:48 Hydromorphone Hcl 1 Mg/Ml Syringe IVPUSH 08/07/24 14:46 1 mg ONCE ONE Administration Protocol Ketamine HCl 50 mg 08/07/24 15:33 08/07/24 15:17 Ketamine Hcl/Ns 50 Mg/5 Ml Syringe IVPUSH 08/07/24 15:34 50 mg ONCE ONE Administration Ketamine HCl 50 mg 08/07/24 15:33 08/07/24 15:19 Ketamine Hcl/Ns 50 Mg/5 Ml Syringe IVPUSH 08/07/24 15:34 50 mg ONCE ONE Administration Ondansetron HCl 4 mg 08/07/24 14:45 08/07/24 14:48 Ondansetron Hcl 4 Mg/2 Ml Vial IVPUSH 08/07/24 14:46 4 mg ONCE ONE Administration Propofol 100 mg 08/07/24 14:56 08/07/24 15:14 Propofol 200 Mg/20 Ml Vial IVPUSH 08/07/24 14:57 100 mg ONCE ONE Administration Propofol 50 mg 08/07/24 15:25 08/07/24 15:11 Propofol 200 Mg/20 Ml Vial IVPUSH 08/07/24 15:26 50 mg ONCE ONE Administration Procedures Orthopedic Joint Reduction Joint #1: Time Out Performed: Yes Side: right Joint Reduction Location: shoulder Analgesia: procedural sedation Shoulder Technique Used (if applicable): traction/counter-traction Technique used: traction/counter-traction Post-reduction neuro exam: intact Post-reduction vascular: intact Post Reduction X-Ray Obtained: Yes Post Reduction X-Ray Results: reduced Splint Applied: Yes Patient Tolerated Procedure: well and no complications Procedural Sedation Indication: fracture/dislocation reduction ASA Class: I Mallampati Class: I Time of Last PO Intake: 10:00 Preparation: classroom monitor applied, pulse oximeter, capnometry used, supplemental O2 applied, reversal agents at bedside, suction/airway equipment at bedside and IV secured Ketamine: IV Ketamine dose (mg): 50 IV Propofol dose (mg): 150 IV Etomidate dose (mg): 7 Patient Tolerated Procedure: well and no complications Complications: none Interventions: oxygen applied Additional Comments: patient required sig medications and did not sedate until etomidate - suspect her ETOH use disorder history Medical Decision Making Medical Decision Making [facility] Narrative: 49 yo female with PMH of alcohol use disorder, bipolar, anxiety and depression here with R shoulder pain after falling down stairs on her buttocks no headstrike and then tried to reach up and grab railing she is NV intact will obtain xrays for shoulder dislocation she has a sig amount of ttp in shoulder but also R lateral trap and scapula I have ordered further imaging CT head/cspine/chest. Her boyfriend did mention she drinks so I did order CT head in case of distracting injury Differential Diagnosis Differential Diagnoses: The differential diagnosis associated with the presentation includes dislocation, fracture, fall Admission/Observation Consideration of admission/observation: Escalation of care including admission/observation considered Lab Data [facility] Lab Attestation statement: I reviewed the patient's lab results. 08/07/24 15:33 08/07/24 15:33 Labs: Lab Results 08/07/24 Range/Units 15:33 WBC 8.3 (4.8-10.8) X10*3/uL RBC 3.63 L (4.20-5.50) X10*6/uL Hgb 13.2 (12.0-16.0) g/dl Hct 35.8 L (37.0-47.0) % MCV 98.6 H (80.0-98.0) fL MCH 36.4 H (27.0-33.0) pg MCHC 36.9 H (31.0-35.0) g/dl RDW 11.2 (11.0-16.0) % Plt Count 194 (160-400) X10*3/uL MPV 10.4 (9.4-12.3) fL Immature Gran % (Auto) 0.5 H (0.0-0.4) % Neut % (Auto) 77.4 H (45-73) % Lymph % (Auto) 14.4 L (20-40) % Brown % (Auto) 6.5 (2-11) % Eos % (Auto) 0.5 (0-4) % Baso % (Auto) 0.7 (0-2) % Lymph # (Auto) 1.2 (1.2-4.9) X10*3/uL Brown # (Auto) 0.5 (0.1-1.2) X10*3/uL Eos # (Auto) 0.0 (0.0-0.4) X10*3/uL Baso # (Auto) 0.1 (0.0-0.2) X10*3/uL Abs Immat Gran (auto) 0.04 H (0.00-0.03) X10*3/uL Absolute Neuts (auto) 6.4 (2.0-8.3) x10*3/uL Absolute Nucleated RBC 0.000 (0.0-0.012) X10*3/uL Nucleated RBC % (auto) 0.0 (0.0-0.2) /100WBC Sodium 138 (135-145) mmol/L Potassium 3.7 (3.3-5.1) mmol/L Chloride 107 (96-108) mmol/L Carbon Dioxide 22 (22-29) mmol/L Anion Gap 13 (12-20) BUN 16 (9-16) mg/dL Creatinine 0.83 (0.5-1.4) mg/dL Estim Creat Clear Calc 85.4 Estimated GFR > 60 Random Glucose 105 (60-115) mg/dL Calcium 8.8 D (8.4-10.2) mg/dL Beta HCG, Quant < 2 mIU/mL Independent Interpretation I performed an independent interpretation of an: Plain X-Ray (shoulder dislocation) and CT Scan Radiology Impression Discussion of test interpretation with radiology: I have reviewed the radiologist's reading. Independent Historian Clinical information obtained from an independent historian. History obtained from or confirmed by: Spouse External Record Review External record reviewed: Outpatient record Discharge Plan Discharge Clinical Impression: Dislocation of shoulder region Qualifiers: Encounter type: initial encounter Laterality: right Qualified Code(s): S43.004A - Unspecified dislocation of right shoulder joint, initial encounter Patient Disposition: Still a Patient Instructions: Shoulder Dislocation (ED) Prescriptions: No Action melatonin 3 mg Tablet 3 - 6 mg PO BEDTIME PRN (Reason: Insomnia) Rx Instructions: 1-2 tabs at Bedtime. hydroxyzine HCl 10 mg tablet See Rx Instructions .ROUTE .COMPLEX PRN (Reason: Anxiety) Qty: 30 0RF Rx Instructions: take 1 tablet po daily as needed for anxiety; take 2 tablets po daily at bedtime as needed for sleep prazosin 2 mg capsule 2 mg PO BEDTIME 15 Days Qty: 15 1RF escitalopram oxalate [Lexapro] 20 mg tablet 20 mg PO DAILY 15 Days Qty: 15 1RF Patient Comments: Patient has not started. acamprosate 333 mg tablet,delayed release (DR/EC) 666 mg PO TID 15 Days Qty: 45 1RF aripiprazole 2 mg Tablet 2 mg PO DAILY 15 Days Qty: 15 1RF Patient Comments: Patient has not started. Referrals: [facility] [Provider Group] Stand Alone Forms: Work/School Release Print Language: Martiniquais
[2024-08-07] MEDS: HYDROmorphone HCl 1 MG/ML SYRINGE IVPUSH (14:48)
[2024-08-07] MEDS: ondansetron HCL 4 MG/2 ML VIAL IVPUSH (14:48)
[2024-08-07] MEDS: propofoL 200 MG/20 ML VIAL 50 MG IVPUSH (15:11)
[2024-08-07] MEDS: propofoL 200 MG/20 ML VIAL 100 MG IVPUSH (15:14)
[2024-08-07] MEDS: Ketamine HCl/NS 50 MG/5 ML SYRINGE IVPUSH ×2 (15:17→15:19)
[2024-08-07] MEDS: Etomidate 20 MG/10 ML VIAL 7 MG IVPUSH (15:21)
[2024-08-07 15:39] LABS: MANUAL DIFF FLAG NO
[2024-08-07 15:43] LABS: Basophils Absolute Auto 0.1 X10*3/uL (0.0-0.2); Basophils Percent Auto 0.7 % (0-2); Eosinophils Percent Auto 0.5 % (0-4); Hematocrit 35.8 % (37.0-47.0); Hemoglobin 13.2 g/dl (12.0-16.0); Imm Gran Abs Auto 0.04 X10*3/uL (0.00-0.03); Imm Gran Pct Auto 0.5 % (0.0-0.4); Lymphocytes Absolute Auto 1.2 X10*3/uL (1.2-4.9); Lymphocytes Percent Auto 14.4 % (20-40); Mean Corpuscular HGB Conc 36.9 g/dl (31.0-35.0); Mean Corpuscular Hemoglobin 36.4 pg (27.0-33.0); Mean Corpuscular Volume 98.6 fL (80.0-98.0); Mean Platelet Volume 10.4 fL (9.4-12.3); Monocytes Absolute Auto 0.5 X10*3/uL (0.1-1.2); Monocytes Percent Auto 6.5 % (2-11); Neutrophils Absolute Auto 6.4 x10*3/uL (2.0-8.3); Neutrophils Percent Auto 77.4 % (45-73); Platelet Count 194 X10*3/uL (160-400); Red Blood Count 3.63 X10*6/uL (4.20-5.50); Red Cell Distribution Width 11.2 % (11.0-16.0); White Blood Count 8.3 X10*3/uL (4.8-10.8)
[2024-08-07 16:00] LABS: Anion Gap 13 (12-20); Blood Urea Nitrogen 16 mg/dL (9-16); Calcium 8.8 mg/dL (8.4-10.2); Carbon Dioxide 22 mmol/L (22-29); Chloride 107 mmol/L (96-108); Creatinine Clr Calc Pharmacy 85.4; Estimated Glomerular Filt Rate > 60; Glucose Random 105 mg/dL (60-115); Potassium 3.7 mmol/L (3.3-5.1); Sodium 138 mmol/L (135-145)
[2024-08-07 16:04] LABS: HCG Quantitative < 2 mIU/mL
--- NOTE | 2024-08-07 16:39 | PC.NURSE ---
Pt arousable to verbal stimuli, oriented to place, self, and situation. Able to maintain own airway. Vital signs updated, call shaw within reach, all needs met at this time.
--- NOTE | 2024-08-07 18:00 | PC.NURSE ---
Pt resting upright in bed maintaining own airway, a/ox4, no c/o pain at this time. Vital signs updated. Call shaw within reach, all needs met at this time.
== END 2024-08-07 20:10 | disposition home or self-care (01) ==
PROVIDERS: Emergency Medicine; Emergency Provider Emergency Medicine; PCP Internal Medicine
DX: S43.084A Other dislocation of right shoulder joint, initial encounter (principal); W10.8XXA Fall (on) (from) other stairs and steps, initial encounter; Y93.89 Activity, other specified; Y92.018 Other place in single-family (private) house as the place of occurrence of the external cause; Y99.9 Unspecified external cause status
CPT/HCPCS: 23655; 36415; 70450; 71250; 72125; 73030; 80048; 84702; 85025; 99152; 99153; 99284; J1171; J2405; J2704

== ENCOUNTER 2024-08-13 11:04 | Outpatient (AMB) | payer OTHER, SELFPAY ==
--- NOTE | 2024-08-13 11:05 | A.OFFVIS_ITS ---
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 Patient reports that she fell down her basement stairs. She was seen at [facility] that same day where x-rays were taken and was put back in place. Currently her pain level is an 8-9 out of 10. States difficulty with sleeping and arm movement increases her pain. Finds no relief with taking Tylenol and ibuprofen. Denies numbness and tingling. States discomfort in her back. 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 She reports she fell down the stairs in basement and dislocated her shoulder. She was seen at ER where x-rays were performed and her shoulder was placed back in. She currently states she has pain in her shoulder and rates the pain as about 8 on the scale of 0-10. Her pain is aggravated with movement and sleeping. She denies any numbness or tingling however she does have discomfort in her back. She finds no relief with Tylenol and ibuprofen. 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 Tenderness over the bicipital groove and along the deltoid region of the shoulder. Forward flexion to 90, external rotation to 90, internal rotation to S1. She is able to activate RTC strength. Positive O?Alcon?s. NVI. ? Results Reviewed Results Reviewed: XR shoulder RT min 2V IMPRESSION: Reduction of previously noted dislocation. Assessment & Plan Assessment & Plan (1) Dislocation of right shoulder joint: Code(s): S43.004A - Unspecified dislocation of right shoulder joint, initial encounter Category: Medical Plan We discussed options which include PT, NSAIDs . She will discontinue the use of the sling. I would like her to begin a course of physical therapy to work on range of motion to tolerance, rotator cuff and periscapular stabilization. She will increase activities as tolerated. If symptoms persist, she will contact our office, otherwise, PRN. Orders: Orders PT Evaluation and Treatment Today S43.004A - Unspecified dislocation of right shoulder joint, initial encounter Medications: Discontinued acamprosate Discontinued Reason: Patient Completed Course 666 mg (2 x 333 mg) PO TID 15 days 45 tabs 1RF prazosin Discontinued Reason: Patient no longer taking 2 mg PO BEDTIME 15 days 15 caps 1RF Patient Instructions: Scribed for Nannette Park PA-C, by Ivan De Jesus medical information officer, on 08/13/2024 at 11:00 AM EST.? I, Nannette Park PA-C, have personally reviewed and agree with the information entered by the scribe. Coding Level of Care Code New Pt Level 3 (70630) Complex EM visit Add On G2211 Diagnoses Dislocation of right shoulder joint S43.004A
[2024-08-13 11:11] VITALS: BMI 29.1
== END 2024-08-13 12:22 | disposition home or self-care (01) ==
PROVIDERS: PCP Internal Medicine; Visit Provider Physician Assistant
DX: S43.004A Unspecified dislocation of right shoulder joint, initial encounter (principal); W10.8XXA Fall (on) (from) other stairs and steps, initial encounter
CPT/HCPCS: 99203

== ENCOUNTER 2024-09-01 13:49 | Outpatient (RCR) | payer OTHER, SELFPAY ==
--- NOTE | 2024-09-01 14:41 | MHC.PT.EP ---
[facility] [place] Office [place] Office [address] Marco Hansen [address] [phone] F: [phone] F: [phone] F: [phone] F: [phone] Physical Therapy Plan of Care Date of Evaluation: 09/01/24 Date of Surgery: n/a Diagnosis: dislocation of R shoulder Assessment: Patient is a 49 year old female presenting to PT with complaints of pain in her R shoulder. Pt reports onset of pain began 08/07/2024 due to falling down the stairs. She presents today with impairments in pain, ROM, shoulder strength. Pt's current occupation is [employer], with baseline physical activities including reaching, lifting, ADLs, sleeping. Pt expresses chcf goal of reducing pain, and is motivated to work towards this in PT. Clinical presentation today is most consistent with signs and sx associated with hx R shoulder dislocation and pt will benefit from skilled PT 2 week x 4 weeks to address the following problems and impairments noted upon evaluation: pain, ROM, shoulder strength. These problems limit the patient with the following functional activities: reaching, lifting, ADLs, sleeping. The prescribed treatment plan of care is medically necessary. Co-morbidities of none were identified and taken into considerations of plan of care. Pt was educated on HEP, role of PT, prognosis, POC. Frequency and Duration: The patient will be seen 2 x week x 4 weeks Short Term Goals: Pt will demonstrate improved shoulder ROM to equal B in 2 weeks. Pt will demonstrate improved R shoulder MMT strength by 1/3 grade in 2 weeks. Corporate Executive Goals: Pt will demonstrate improved SPADI score by 13 points in 4 weeks for improved functional mobility. Pt will demonstrate ability to reach OH and lift with min to no pain in 4 weeks for improved tolerance to ADLs. Pt will demonstrate ability to sleep through the night with min to no pain n 4 weeks for return to PLOF. Treatment Plan: Modalities to reduce pain, spasms and effusion. Manual therapy to restore motion and function. Therapeutic exercise to improve strength and flexibility. Neuromuscular re-education for posture and balance. Therapeutic activities to return to functional activities of daily living. Electronically signed by: Maylin Sethi, PT, DPT, ATC Please sign and return to therapist. Thank you for your referral.
--- NOTE | 2024-10-01 07:06 | MHC.PT.DC ---
[facility] [place] Office [place] Office [place] Office [address] 140 [facility] [phone] F: [phone] F: [phone] F: [phone] F: [phone] Physical Therapy Discharge Report Diagnosis: dislocation of R shoulder Date of Surgery: n/a Date of Evaluation: 09/01/24 Date of Discharge: 10/01/24 Treatments to Date: 1 Cancellations to Date: 1 No Shows to Date: 0 Discharge Status: Visit Non-compliance Discharge Summary: Pt has not attended skilled PT in >30 days and therefore to be d/c. Electronically signed by: Maylin Sethi, PT, DPT, ATC Please sign and return to therapist. Thank you for your referral.
== END 2024-10-01 07:06 | disposition home or self-care (01) ==
LOC: HO.PTCHIC 13:49
PROVIDERS: PCP Internal Medicine; Visit Provider Physician Assistant
DX: S43.004D Unspecified dislocation of right shoulder joint, subsequent encounter (principal)
CPT/HCPCS: 97110; 97161

== ENCOUNTER 2025-04-30 02:25 | Emergency (ER) | payer OTHER, SELFPAY ==
[2025-04-30] MEDS: diazePAM 10 MG/2 ML CARTRIDGE IM (02:42)
[2025-04-30 02:47] VITALS: PULSE 105; RESP 12; O2SAT 96; BMI 25.7
--- NOTE | 2025-04-30 03:10 | PC.NURSE ---
pt slightly calmer at this time, when asked what happened today, if she had thoughts of harming herself. she states i can't talk about it yet, my brain is going at 100%, its too loud and bright to talk, i need to rest
--- NOTE | 2025-04-30 03:11 | ED.GENADULT ---
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 The Uber driver's education instructor notified police who activated EMS. Patient is well known to PD, has a history of EtOH with suicidality. For EMS the patient has been emotionally distraught, hyperventilating, occasionally lashing out/swinging at EMS staff, refusing vital signs or being touched, and and having some intermittent visual hallucinations. The patient arrived to the ED crying, hyperventilating, uncooperative with interview or exam, non redirectable despite multiple attempts by varying individuals. Patient is unable or unwilling to contribute to HPI, however is noted by this provider during interviewed to be saying ?I just want to , just kill me?. Related Data Home Medications ?Medication ?Instructions ?Recorded ?Confirmed melatonin 3 mg tablet 3 - 6 mg PO BEDTIME PRN Insomnia 07/30/23 04/30/25 sertraline 50 mg tablet 50 mg PO DAILY 04/30/25 04/30/25 Previous Rx's ?Medication ?Instructions ?Recorded hydroxyzine HCl 10 mg tablet See Rx Instructions .Route 08/14/23 .COMPLEX PRN Anxiety #30 tabs Allergies Allergy/AdvReac Type Severity Reaction Status Date / Time No Known Allergies Allergy Verified 04/30/25 02:49 Review of Systems Review of Systems: Yes all other systems are reviewed and are negative [facility] Past Medical History Medical History delivery delivered Menopause No known health problems Surgical History No history of previous surgery Social History Social History (Updated 08/13/24 @ 11:11 by DAVE Coffey) Household Members: Significant Other and Children Unable to assess alcohol history related to: Unable to respond Alcohol intake: current Alcohol intake frequency: 3 or more drinks per day Alcohol type: beer Patient Tobacco Use Status: Never used Tobacco Use of substances other than those prescribed or required for medical reasons: Unable to respond Advance Directives: No Advance Directives Information Provided: No 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, 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 Physical Exam ED Vital Signs: Vital Signs - 24 hr 04/30/25 02:47 04/30/25 03:12 04/30/25 03:27 Pulse Rate 105 H 99 90 Respiratory Rate 12 13 12 Blood Pressure 95/60 102/53 L Pulse Oximetry 96 94 95 Oxygen Delivery Method Room Air Room Air Room Air 04/30/25 03:52 04/30/25 06:48 Pulse Rate 87 87 Respiratory Rate 12 14 Blood Pressure 94/47 L 107/53 L Pulse Oximetry 94 98 Oxygen Delivery Method Room Air Room Air BMI result Body Mass Index 25.7 CONSTITUTIONAL: The patient appears clinically intoxicated, emotionally distraught, odor of EtOH metabolites on breath, but otherwise well nourished and in no acute distress. Vital signs as documented. HEAD: Atraumatic, normocephalic. EYES: EOMs grossly intact, pupils equal, conjunctiva clear, no exudate. ENT: Nares patent, no discharge. Airway patent, no audible stridor, visible mucosa is pink and moist without noted lesions. NECK: trachea is midline, no obvious masses or gross abnormalities. CHEST: Symmetric movement, normal appearance. LUNGS: Non-labored work of breathing. CARDIAC: No evidence of hypoperfusion. ABDOMEN: Nondistended, no obvious injury. : Deferred. EXTREMITIES: Moves all extremities spontaneously without reported pain. No obvious injury or deformity noted. NEURO: Alert, unable or unwilling to cooperate with remainder of neurologic exam. PSYCH: Unpredictable behavior, animated affect, crying/tearful, does not appear to be responding to internal stimuli. SKIN: Warm, dry, color appropriate. No rashes or lesions noted. Course Reevaluation(s) Reevaluation #1: I, Dr. Benítez have take over the care of this patient, I reviewed pertinent blood work and imaging, re-evaluated the patient when appropriate. Time: 06:11 Reevaluation #2: Comprehensive Care ordered, patient will be discharged to follow up on outpatient basis Time: 12:22 Medications Administered Discontinued Medications Generic Name Dose Route Start Last Admin Trade Name Freq PRN Reason Stop Dose Admin Diazepam 10 mg 04/30/25 02:33 04/30/25 02:42 Diazepam 10 Mg/2 Ml Cartridge IM 04/30/25 02:34 10 mg STAT STA Administration Haloperidol Lactate 5 mg 04/30/25 02:33 04/30/25 02:42 Haloperidol Lactate 5 Mg/Ml Vial IM 04/30/25 02:34 5 mg ONCE ONE Administration Medical Decision Making Medical Decision Making MDM Narrative: 3:19 AM 04/30/2025 (João MENCHACA): The patient is a 50-year-old female presenting to the ED via EMS under section 12 from police for suicidal ideation statements made while clinically intoxicated. Patient arrives to the ED emotionally distraught, poorly redirectable, occasionally lashing out at staff, and repeatedly attempting to get up out of bed despite her unsteady gait. For patient's staff safety patient was restrained with chemical restraint. Patient surprisingly very willingly accepted IM medication despite her assertions that she should not be touched. The patient has since become more calm and cooperative, allowing vital signs. The patient we will continue to be monitored, and we will obtain crisis consultation once medically cleared. Admission/Observation Consideration of admission/observation: Escalation of care including admission/observation considered Consult Healthcare Provider Management of the patient was discussed with: Behavioral Health Provider Lab Data Labs: Lab Results 04/30/25 Range/Units 08:08 Urine Color Yellow Urine Appearance Clear Urine pH 5.5 (5.0-9.0) Ur Specific [place] 1.015 (1.005-1.025) Urine Protein Negative (Neg-Trace) mg/dL Urine Glucose (UA) Negative (Negative) mg/dL Urine Ketones Negative (Negative) mg/dL Urine Blood Negative (Negative) Urine Nitrite Negative (Negative) Ur Leukocyte Esterase Trace H (Negative) Urine RBC 0-2 (0-2) /HPF Urine WBC 0-5 (0-5) /HPF Ur Squamous Epith Cells 0-2 (0-2) /HPF Urine Bacteria None Seen (None Seen) Hyaline Casts 0-2 (0-2) /LPF Urine Test NEGATIVE (NEGATIVE) Urine Opiates Screen Not Detected (Not Detect) Ur Buprenorphine Scrn Not Detected (Not Detect) ng/mL Ur Oxycodone Screen Not Detected (Not Detect) ng/mL Urine Methadone Screen Not Detected (Not Detect) ng/mL Urine Fentanyl Screen Not Detected (Not Detect) Ur Barbiturates Screen Not Detected (Not Detect) Ur Phencyclidine Scrn Not Detected (Not Detect) Ur Amphetamines Screen Not Detected (Not Detect) U Benzodiazepines Scrn Not Detected (Not Detect) Urine Cocaine Screen Not Detected (Not Detect) U Marijuana (THC) Screen Not Detected (Not Detect) Discharge Plan Discharge Clinical Impression: Alcohol use disorder, severe, in early remission, dependence, Suicidal ideation Patient Disposition: Home, Self-Care Additional Instructions: You were seen in our Emergency Department today for treatment of a behavioral health issue. It is important after your visit that you follow up with either your behavioral health provider or a primary care doctor within 7 days.? If you have trouble finding a therapist you can reach out to [address] [phone] [facility] [place] [facility] can be reached 7 days a week 24 hours a day.? Call [phone] to speak with someone.? Return for any worsening symptoms or concerns such as thoughts of self harm or harm to others. Please call 911 if you feel your mental health is worsening.? Prescriptions: No Action sertraline 50 mg tablet 50 mg PO DAILY melatonin 3 mg Tablet 3 - 6 mg PO BEDTIME PRN (Reason: Insomnia) Rx Instructions: 1-2 tabs at Bedtime. hydroxyzine HCl 10 mg tablet See Rx Instructions .ROUTE .COMPLEX PRN (Reason: Anxiety) Qty: 30 0RF Rx Instructions: take 1 tablet po daily as needed for anxiety; take 2 tablets po daily at bedtime as needed for sleep Interventions: [place]-Suicide Risk Severity Scale Last Done: 04/30/25 07:39 Print Language: Tanzanian
[2025-04-30 03:12] VITALS: BP 95/60; PULSE 99; RESP 13; O2SAT 94
[2025-04-30 03:27] VITALS: BP 102/53; PULSE 90; RESP 12; O2SAT 95
[2025-04-30 03:52] VITALS: BP 94/47; PULSE 87; RESP 12; O2SAT 94
--- NOTE | 2025-04-30 03:55 | PC.NURSE ---
pt resting comfortably, awakes easily to verbal stim. refusing labs
[2025-04-30 06:48] VITALS: BP 107/53; PULSE 87; RESP 14; O2SAT 98
--- OUTSIDE RECORDS SUMMARY | 2025-04-30 07:24 | XMS_ITS | Clinical Summary ---
Author Organization [facility] [address] [place] [address] [place] [phone] Phone Care Team Providers Care Customer Support Agent Name Role Phone Suad Dowell MD Primary Care [facility] ider Allergies No known active allergies Medications hydrOXYzine HCL (ATARAX) 10 mg tablet Take 1 Tablet by mouth 2 times daily as needed for Anxiety. 09/10/2022 Active docusate sodium (Colace) 100 mg capsule Take 1 capsule (100 mg total) by mouth 1 (one) time each day if needed for constipation . 90 capsule 03/02/2025 Active sertraline (ZOLOFT) 50 mg tablet Take 1 tablet (50 mg total) by mouth 1 (one) time each day. 90 tablet 03/02/2025 Active Active Problems Problem Noted Date Diagnosed Date Female infertility 03/02/2025 Anxiety 03/02/2025 Alcoholism in recovery ([facility] V24, [facility] V28 ) 09/10/2021 Premature menopause 06/11/2018 Overview (08/04/2024): Last Assessment & Plan: Offered to restart OCP for hormonal support. No contraindications. She will do so and follow up in 3 months. Major depressive disorder, r ecurrent severe without psychotic features ([facility] V24, [facility] V28) 04/10/2016 Overview (08/04/2024): Last Assessment & Plan: Refilled Rx for Zoloft x 1, but encouraged her to have this done by PCP in the future. She will continue therapya nd try to start exercise which will help with mood. Panic disorder without agoraphobia 01/24/2011 Encounters Date Type Department Care Team Description 03/10/2025 2:30 PM EDT Office Visit [address] [phone] Rufina Shirley PA Trouble in sleeping (Primary Dx); Witnessed episode of apnea 03/02/2025 7:30 AM EDT Office Visit [address] [phone] Rufina Shirley PA Routine general medical examination at a health care facility (Primary Dx); Menopausal and perimenopausal disorder; Screening for cardiovascular condition; Screening for depression; Encounter for screening involving social determinants of health (SDoH); Need for tetanus, diphtheria, and acellular pertussis (Tdap) vaccine; Screening for malignant neoplasm of colon 01/29/2025 2:45 PM EDT - 01/29/2025 11:59 PM EDT Hospital Encounter Radiology Department - [address] [phone] Encounter for screening mammogram for breast cancer Discharge Disposition: Home or Self Care from Last 3 Months Immunizations Name Administration Dates Next Due Influenza Quadravalent, MDCK , 0.5ml, preservative free (Flucelvax) 6mo and older 09/10/2021,07/06/2018 Influenza trivalent, 0.5mL, preservative free (Fluarix; FluLaval; Fluzone) ages 6mo and older (Afluria) 3 years and older 06/17/2014,05/26/2013,08/03/2012 Pfizer SARS-CoV-2 COVID-19, mRNA, LNP-S, preservative free 11/29/2020,11/07/2020 Tdap Tetanus diptheria acell ular pertussis (Boostrix; Adacel) 7yo and older 03/02/2025,10/12/2014,09/08/2013,2011 Surgical History Surgery Date Site/Laterality Comments SECTION 2013, 2014 PROCEDURE: HISTORICAL DELIVERY; COMMENT: x 2 TUBAL LIGATION 2014 PROCEDURE: HISTORICAL TUBAL LIGATION Medical History Medical History Date Comments Other specified personal his tory presenting hazards to health(V15.89) DX:Other specifie d personal history presenting hazards to health(V15.89); COMMENT: ?ASCUS 2006 pos hpv Alcohol dependence (CMS/HCC V24, CMS/HCC V28) DX:Alcohol dependence (HCC); COMMENT: Right Choice and aware Family History Medical History Relation Name Comments No Known Problems Brother 1 No Known Problems Brother 2 No Known Problems Brother 3 No Known Problems Brother 4 Heart attack Father passed from the event Diabetes Mother Heart attack Mother passed from the event Hypertension Mother Hypertension Sister Obesity Sister s/p bariatric s urgery ADD / ADHD Son 1 Manjeet No Known Problems Son 2 [facility] Breast cancer Neg Hx Colon cancer Neg Hx Ovarian cancer Neg Hx Pancreatic cancer Neg Hx Prostate cancer Neg Hx Stroke Neg Hx Uterine cancer Neg Hx Relation Name Status Comments Brother 1 Alive live in Brother 2 Alive live in Brother 3 Alive live in Brother 4 Alive live in Father Maternal Grandfather Maternal Grandmother Mother Paternal Grandfather Paternal Grandmother Sister Alive Son 1 Manjeet Alive 2013 Son 2 [facility] Alive 2014 Social History Tobacco Use Types Packs/Day Years Used Date Smoking Tobacco: Never Smokeless Tobacco: Never Tobacco Cessation:Counseling Given: Not Answered Alcohol Use Standard Drinks/Week Comments Not Currently 0 (1 standard drink = 0.6 oz pur e alcohol) Housing Instability Answer Date Recorde d Are you worried that in the next 2 months you may not have stable housing? No 03/02/2025 Food Access & Nutrition Answer Date Rec orded Do you have access to a vari ety of food including fruits and vegetables? Yes 03/02/2025 Health Literacy Answer Date Recorded How often do you need to hav e someone help you when you read instructions, pamphlets, or other written material from your doctor or pharmacy? Never 03/02/2025 Caregiver: How often do you need to have someone help you when you read instructions, pamphlets, or other written material from your doctor or pharmacy? Not on file 03/02/2025 Financial Risk Answer Date Recorded How hard is it for you to pa y for the very basics like food, housing, medical care, and air conditioning / heating? Not very hard 03/02/2025 Transportation Answer Date Recorded Has the lack of transportati on kept you from meetings, work, or from getting things needed for daily living? No Has the lack of transportati on kept you from medical appointments or from getting medications? No 03/02/2025 Social Isolation Answer Date Recorded How often do you feel lonely or isolated from th ose around you? Never 03/02/2025 Food Risk Answer Date Recorded Within the past 12 months we worried whether our food would run out before we got money to buy more. Never true 03/02/2025 Within the past 12 months th e food we bought just didn't last and we didn't have money to get more. Never true 03/02/2025 Dependent Care Answer Date Recorded Do you need help finding or paying for care for your loved ones. For example, child psychologist or elderly care for an older adult? No 03/02/2025 Education Answer Date Recorded Do you think completing more education or training, like finishing a GED, going to college, or learning a trade, would be helpful for you? No 03/02/2025 Employment and Income Answer Date Recor ded During the last four weeks, have you been actively looking for work? No 03/02/2025 Living Situation Answer Date Recorded What is your living situation? 0 03/02/2025 Comments No Sex and Gender Information Value Date Recorded Sex Assigned at Not on file Legal Sex Female 1:14 PM EST Gender Identity Not on file Sexual Orientation Not on file Obstetrics History * This document contains information received from the source organization and may not represent a complete record from that organization. Para Term AB IAB SAB Ectopic Multiple Livin g Live Births 4 3 2 1 2 2 Date Outcome GA Total Labor Labor/2nd/3rd Weight Sex Type Anes PTL Catherine A1 A5 Name Clin Term 2007 2013 Term 41w 0d 3827 g (135 oz) M CS-LT ranv Spinal Livin g Car Delivery Location:[facility] Comments:Second stage arrest 2014 36w 0d M CS-LT ranv Spinal Livin g [place] Comments:placenta prev ia; pp BTL Last Filed Vital Signs Vital Sign Reading Time Taken Comments Blood Pressure 109/71 03/10/2025 2:29 PM EDT Pulse 66 03/10/2025 2:29 PM EDT Temperature 37.1 C (98.8 F) 03/10/2025 2:29 PM EDT Respiratory Rate 15 03/10/2025 2:29 PM EDT Oxygen Saturation 99% 03/10/2025 2:29 PM EDT Inhaled Oxygen Concentration - - Weight 66.5 kg (146 lb 9.6 oz) 03/10/2025 2:29 P M EDT Height 154.9 cm (5' 1 ) 03/10/2025 2:29 PM EDT Body Mass Index 27.7 03/10/2025 2:29 PM EDT Plan of Treatment Health Maintenance Due Date Last Done Comments Hepatitis A Vaccines (1 of 2 - Risk 2-dose series) 01/12/1996 Colorectal Cancer Screening: FIT-DNA (Cologuard) 08/03/2022 Influenza Vaccine (#1) 2025 , 07/06/2018, 06/17/2014, Additional history exists Breast Cancer Screening 01/29/2026 01/30/20, 01/03/2024, 01/03/2024, Additional history exists Social Influencers of Health Screening 03/02/2026 03/02/2025 Cervical Cancer Screening: HPV 11/19/2029 11/19/2024, 11/19/2024, 11/13/2022 Cholesterol Screening (Lipid Panel) 03/08/2030 03/08/2025, 11/13/2022 DTaP,Tdap,and Td Vaccines (5 - Td or Tdap) 03/02/2035 03/02/2025, 10/12/2014, 09/08/2013, Additional history exists HIV Screening Completed 04/19/2014 Hepatitis C Screening Completed 03/22/2020 COVID-19 Vaccine Discontinued 11/29/2020, 11/07/2020 Depression Screening Completed 03/02/2025 HIB Vaccines Aged Out No longer eligi ble based on patient's age to complete this topic HPV Vaccines Aged Out No longer eligi ble based on patient's age to complete this topic Hepatitis B Vaccines Discontinued IPV Vaccines Aged Out No longer eligi ble based on patient's age to complete this topic MMR Vaccines Aged Out No longer eligi ble based on patient's age to complete this topic Meningococcal ACWY Vaccine Aged Out N o longer eligible based on patient's age to complete this topic Meningococcal B Vaccine Aged Out No l onger eligible based on patient's age to complete this topic Pneumococcal Vaccine: Pediatrics (0 to 5 Years) and At-Risk Patients (6 to 49 Years) Aged Out No longer eligible based on patient's age to complete this topic RSV Immunization Patients Under 20 months Aged Out No longer eligible based on patient's age to complete this topic Varicella Vaccines Aged Out No longer eligible based on patient's age to complete this topic Procedures Procedure Name Priority Date/Time Associated Diagnosis Comments CBC WITH AUTO DIFFERENTIAL Routine 03/08/2025 8:34 AM EDT Screening for cardiovascular condition THYROID STIMULATING HORMONE WITH REFLEX TO FREE T4 AND FREE T3 Routine 03/08/2025 8:34 AM EDT Menopausal and perimenopausal disorder LIPID PANEL WITH REFLEX TO DIRECT LDL Routine 03/08/2025 8:34 AM EDT Screening for cardiovascular condition COMPREHENSIVE METABOLIC PANEL Routine 03/08/2025 8:34 AM EDT Screening for cardiovascular condition CBC AND DIFFERENTIAL Routine 03/08/2025 8:34 AM EDT Screening for cardiovascular condition MG MAMMO DIGITAL SCREENING W LIBRADO BILAT Routine 01/29/2025 3:05 PM EDT Encounter for screening mammogram for breast cancer HPV WITH REFLEX GENOTYPE Routine 11/19/2024 4:32 PM EDT Encounter for gynecological examination without abnormal finding HEPATITIS C SCREENING Routine 03/22/2020 HIV SCREENING Routine 04/19/2014 from Last 3 Months or Most Recently Relevant to Health Maintenance Results * Thyroid stimulating hormone with reflex to free t4 and free t3 (03/08/2025 8:34 AM EDT) TSH 1.12 0.40 - 4.00 mcIU/mL LAB CHEMISTRY METHOD 03/08/2025 12:48 PM EDT [facility] Blood Venous blood specimen / Unknown Venipuncture / Unknown 03/08/2025 8:34 AM EDT 03/08/2025 8:34 AM EDT us Rufina MENCHACA LAB BLOOD ORDERABLES Final Resu lt [facility] [address] [place] [address], [place] [phone] * (ABNORMAL) Lipid panel with reflex to direct LDL (03/08/2025 8:34 AM EDT) Cholesterol 241(H) 0 - 200 mg/dL LAB CHEMISTRY METHOD 03/08/2025 12:16 PM EDT [facility] Triglycerides 47 0 - 150 mg/dL LAB CHEMISTRY METHOD 03/08/2025 12:16 PM EDT [facility] HDL 97 >=40 mg/dL LAB CHEMISTRY METHOD 03/08/2025 12:16 PM EDT [facility] LDL Calculated 135(H) 0 - 100 mg/dL LAB CHEMISTRY METHOD 03/08/2025 12:16 PM T [facility] VLDL Cholesterol Gonzalo 9.4 mg/dL LAB CHEMISTRY METHOD 03/08/2025 12:16 PM EDT [facility] Non HDL Chol. (LDL+VLDL) 144 <145 mg/dL LAB CHEMISTRY METHOD 03/08/2025 12:16 PM EDT [facility] Chol/HDL Ratio 2.5 0.0 - 4.4 LAB CHEMISTRY METHOD 03/08/2025 12:16 PM [facility] Blood Venous blood specimen / Unknown Venipuncture / Unknown 03/08/2025 8:34 AM EDT 03/08/2025 8:34 AM EDT us Rufina MENCHACA LAB BLOOD ORDERABLES Final Resu lt [facility] [address] [place] [address], * (ABNORMAL) CBC auto differential (03/08/2025 8:34 AM EDT) WBC 4.7(L) 4.8 - 10.8 K/mcL LAB HEMETOLOGY METHOD 03/08/2025 10:25 AM EDT [facility] RBC 3.90 3.80 - 4.80 M/[facility] LAB HEMETOLOGY METHOD 03/08/2025 10:25 AM EDT [facility] Hemoglobin 13.7 11.5 - 16.0 g/dL LAB HEMETOLOGY METHOD 03/08/2025 10:25 AM EDT [facility] Hematocrit 39.0 35.0 - 47.0 % LAB HEMETOLOGY METHOD 03/08/2025 10:25 AM EDT [facility] MCV 101.0(H) 79.0 - 98.0 FL LAB HEMETOLOGY METHOD 03/08/2025 10:25 AM EDT [facility] MCH 35.5(H) 27.0 - 32.0 pcg LAB HEMETOLOGY METHOD 03/08/2025 10:25 AM EDT [facility] MCHC 35.1 32.0 - 37.0 g/dL LAB HEMETOLOGY METHOD 03/08/2025 10:25 AM EDT [facility] RDW 11.3 11.0 - 15.0 % LAB HEMETOLOGY METHOD 03/08/2025 10:25 AM EDT [facility] Platelets 192 130 - 400 K/[facility] LAB HEMETOLOGY METHOD 03/08/2025 10:25 AM EDT [facility] MPV 11.6(H) 7.0 - 11.0 FL LAB HEMETOLOGY METHOD 03/08/2025 10:25 AM [facility] NRBC 0.0 <1.0 % LAB HEMETOLOGY METHOD 03/08/2025 10:25 AM [facility] NRBC Absolute 0.00 <0.10 K/mcL LAB HEMETOLOGY METHOD 03/08/2025 10:25 AM [facility] Neutrophils Relative 61.0 % LAB HEMETOLOGY METHOD 03/08/2025 10:25 AM [facility] Lymphocytes Relative 27.0 % LAB HEMETOLOGY METHOD 03/08/2025 10:25 AM [facility] Monocytes Relative 9.2 % LAB HEMETOLOGY METHOD 03/08/2025 10:25 AM [facility] Eosinophils Relative 1.5 % LAB HEMETOLOGY METHOD 03/08/2025 10:25 AM [facility] Basophils Relative 1.1 % LAB HEMETOLOGY METHOD 03/08/2025 10:25 AM [facility] Immature Granulocytes Relative 0.2 % LAB HEMETOLOGY METHOD 03/08/2025 10:25 AM [facility] Neutrophils Absolute 2.85 1.50 - 7.00 K/mcL LAB HEMETOLOGY METHOD 03/08/2025 10:25 AM [facility] Lymphocytes Absolute 1.26 1.00 - 5.00 K/mcL LAB HEMETOLOGY METHOD 03/08/2025 10:25 AM [facility] Monocytes Absolute 0.43 0.20 - 1.00 K/mcL LAB HEMETOLOGY METHOD 03/08/2025 10:25 AM [facility] Eosinophils Absolute 0.07 0.00 - 0.50 K/mcL LAB HEMETOLOGY METHOD 03/08/2025 10:25 AM [facility] Basophils Absolute 0.05 0.00 - 0.20 K/mcL LAB HEMETOLOGY METHOD 03/08/2025 10:25 AM T [facility] Immature Granulocytes Absolute 0.01 0.00 - 0.03 K/mcL LAB HEMETOLOGY METHOD 03/08/2025 10:25 AM [facility] Blood Venous blood specimen / Unknown Venipuncture / Unknown 03/08/2025 8:34 AM EDT 03/08/2025 8:34 AM EDT us Rufina MENCHACA LAB BLOOD ORDERABLES Final Resu lt [facility] [address] [place] [address], [place] [phone] * (ABNORMAL) Comprehensive metabolic panel (03/08/2025 8:34 AM EDT) Sodium 139 133 - 145 mmol/L LAB CHEMISTRY METHOD 03/08/2025 12:15 PM [facility] Potassium 4.3 3.5 - 5.5 mmol/L LAB CHEMISTRY METHOD 03/08/2025 12:15 PM [facility] Chloride 108 96 - 110 mmol/L LAB CHEMISTRY METHOD 03/08/2025 12:15 PM [facility] CO2 29 21 - 32 mmol/L LAB CHEMISTRY METHOD 03/08/2025 12:15 PM [facility] Anion Gap 2(L) 3 - 11 LAB CHEMISTRY METHOD 03/08/2025 12:15 PM [facility] Glucose 85 70 - 100 mg/dL LAB CHEMISTRY METHOD 03/08/2025 12:15 PM [facility] BUN 10 5 - 25 mg/dL LAB CHEMISTRY METHOD 03/08/2025 12:15 PM [facility] Creatinine 0.93 0.50 - 1.10 mg/dL LAB CHEMISTRY METHOD 03/08/2025 12:15 PM [facility] eGFR 76 >=60 mL/min/1. 73m2 LAB CHEMISTRY METHOD 03/08/2025 12:15 PM EDT [facility] Comment:Calculation based on the Chronic Kidney Disease Epidemiology Collaboration (CKD-EPI) equation refit without adjustment for race. BUN/Creatinine Ratio 10.8 LAB CHEMISTRY METHOD 03/08/2025 12:15 PM EDT [facility] Calcium 9.7 8.5 - 10.5 mg/dL LAB CHEMISTRY METHOD 03/08/2025 12:15 PM EDT [facility] AST (SGOT) 15 10 - 42 unit/L LAB CHEMISTRY METHOD 03/08/2025 12:15 PM [facility] ALT (SGPT) 35 10 - 60 unit/L LAB CHEMISTRY METHOD 03/08/2025 12:15 PM [facility] Alkaline Phosphatase 87 42 - 121 unit/L LAB CHEMISTRY METHOD 03/08/2025 12:15 PM [facility] Total Protein 7.3 6.0 - 8.0 g/dL LAB CHEMISTRY METHOD 03/08/2025 12:15 PM [facility] Albumin 4.0 3.2 - 5.0 g/dL LAB CHEMISTRY METHOD 03/08/2025 12:15 PM [facility] Total Bilirubin 0.5 0.0 - 1.4 mg/dL LAB CHEMISTRY METHOD 03/08/2025 12:15 PM [facility] Blood Venous blood specimen / Unknown Venipuncture / Unknown 03/08/2025 8:34 AM EDT 03/08/2025 8:34 AM EDT us Rufina MENCHACA LAB BLOOD ORDERABLES Final Resu lt [facility] [address] [place] [address], [place] [phone] * MG Mammo Digital Screening w Librado bilat (01/29/2025 3:05 PM EDT) Anatomical Region Laterality Modality Breast Bilateral Mammography 01/31/2025 9:19 AM EDT Impressions 01/31/2025 9:22 AM EDT No mammographic evidence of malignancy. BI-RADS CATEGORY: 1 - NEGATIVE RECOMMENDATION: Screening bilateral mammogram is recommended in 1 year. Mammo Location: [facility], [address] [place] [address], [id number], . -------- FINAL REPORT -------- Dictated By: Jordyn Garber Dictated Date: 01/31/2025 09:19 ET Assigned Physician: Jordyn Garber Reviewed and Electronically Signed By: Jordyn Garber Signed Date: 01/31/2025 09:22 ET Workstation ID: [id number] Transcribed By: Self Edit Transcribed Date: 01/31/2025 09:19 ET Narrative 01/31/2025 9:22 AM EDT Bilateral screening mammogram. CLINICAL: 50 years old, Female, routine annual exam. COMPARISON: Prior mammograms, latest from 01/03/2024. TECHNIQUE: Bilateral MLO and CC views were obtained digitally with 2D C views and 3-D mammogram (digital breast tomosynthesis). Computer-aided detection was utilized in evaluation of this exam (CAD). FINDINGS: There is no evidence of suspicious mass or architectural distortion. No worrisome calcifications are evident. There has been no significant change from prior exam(s). BREAST DENSITY: C - The breasts are heterogeneously dense which may obscure small masses. Procedure Note Jordyn Garber MD - 01/31/2025 Bilateral screening mammogram. CLINICAL: 50 years old, Female, routine annual exam. COMPARISON: Prior mammograms, latest from 01/03/2024. TECHNIQUE: Bilateral MLO and CC views were obtained digitally with 2D Cviews and 3-D mammogram (digital breast tomosynthesis). Computer-aideddetection was utilized in evaluation of this exam (CAD). FINDINGS: There is no evidence of suspicious mass or architectural distortion. Noworrisome calcifications are evident. There has been no significantchange from prior exam(s). BREAST DENSITY: C - The breasts are heterogeneously dense which mayobscure small masses. IMPRESSION: No mammographic evidence of malignancy. BI-RADS CATEGORY: 1 - NEGATIVE RECOMMENDATION: Screening bilateral mammogram is recommended in 1 year. Mammo Location: [facility], [address] [place] [address], [phone], . -------- FINAL REPORT -------- Dictated By: Jordyn Garber Dictated Date: 01/31/2025 09:19 ET Assigned Physician: Jordyn Garber Reviewed and Electronically Signed By: Jordyn Garber Signed Date: 01/31/2025 09:22 ET Workstation ID: [id number] Transcribed By: Self Edit Transcribed Date: 01/31/2025 09:19 ET Brenda Amaya CNM IMG BI PROCEDURES Final Result * (ABNORMAL) HPV with reflex genotype (11/19/2024 4:32 PM EDT) Pathologist [facility] HPV Positive( A) Negative LAB MICROBIOLOGY METHOD 11/23/2024 3:33 PM EDT [facility] Brushing/Spatula Cervix uteri structure / Unknown 11/19/2024 4:32 PM EDT 11/23/2024 8:09 AM EDT Brenda Amaya CNM LAB MOLECULAR DIAGNOSTICS ORDE RABLES Final Result [facility] [address] [place] [address], [place] [phone] * Hepatitis C Screening (03/22/2020) [facility] Hepatitis C Screening abstracted Historical Provider HEALTH MAINTENANCE Final Result * HIV Screening (04/19/2014) [facility] HIV Screening abstracted Historical Provider HEALTH MAINTENANCE Final Result from Last 3 Months or Most Recently Relevant to Health Maintenance [facility] Care Teams Customer Support Agent Relationship Specialty Start Date End Date Suad Dowell MD [address] [place] [phone] PCP - General Internal Medicine 03/25/22
--- OUTSIDE RECORDS SUMMARY | 2025-04-30 07:24 | XMS_ITS | Clinical Summary ---
Author Organization [facility]ly [facility] Address [address] [address] Phone Care Team Providers Care Frozen Yogurt Maker Name Role Phone Pcp, Unknown Primary Care Provider Unavailabl e Allergies No known active allergies Medications No known medications Social History Tobacco Use Types Packs/Day Years Used Date Smoking Tobacco: Never Assessed Education Answer Date Recorded Are you interested in more education? Not on tarik e 12/22/2024 Are you concerned about learning? Not on file 12/22/2024 No 12/22/2024 No 12/22/2024 Digital Access Answer Date Recorded No 12/22/2024 No 12/22/2024 Reliable internet access at home? Not on file 12/22/2024 Device with a working camera? Not on file Intimate Partner Violence Answer Date R ecorded Are you denied basic needs s uch as food, clothing, or medical care? No 12/21/2024 In the past 12 months have y ou been in a relationship with a person who hurts, threatens, or tries to control you? No 12/21/2024 Are you denied basic needs s uch as food, clothing, or medical care? No 12/21/2024 In the past 12 months have y ou been in a relationship with a person who hurts, threatens, or tries to control you? No 12/21/2024 Comments Unknown Sex and Gender Information Value Date Recorded Sex Assigned at Female 12/22/2024 6:06 AM EDT Legal Sex Female 10:53 PM EDT Gender Identity Choose not to disclose 6:06 AM EDT Sexual Orientation Choose not to disclose 2024 6:06 AM EDT Last Filed Vital Signs Vital Sign Reading Time Taken Comments Blood Pressure 125/81 12/21/2024 11:11 PM EDT Pulse 96 12/21/2024 11:11 PM EDT Temperature 36.4 C (97.5 F) 12/21/2024 11:11 PM EDT Respiratory Rate 16 12/21/2024 11:11 PM EDT Oxygen Saturation 97% 12/21/2024 11:11 PM EDT Inhaled Oxygen Concentration - - Weight 63.5 kg (140 lb) 12/21/2024 11:11 PM EDT Height 157.5 cm (5' 2 ) 12/21/2024 11:11 PM EDT Body Mass Index 25.61 12/21/2024 11:11 PM EDT Plan of Treatment Health Maintenance Due Date Last Done Comments Adult Td,Tdap Booster 1977 LIPID PANEL 1977 DEPRESSION SCREENING 1989 SMOKING Hx and SMOKELESS TOB ACCO SCREENING 1990 HEPATITIS C SCREENING 1995 HIV ONE-TIME SCREENING (18-6 5 YEARS) 1995 PAP SMEAR 1998 SCREENING FOR DIABETES 01/12/2012 MAMMOGRAM 2017 COLOGUARD 2022 COLONOSCOPY 2022 COLORECTAL CANCER SCREENING 2022 FIT TEST 2022 FOBT 2022 SIGMOIDOSCOPY 2022 VIRTUAL COLONOSCOPY 2022 COVID-19 VACCINE ( - 2023-2 5 season) 2024 HEPATITIS A VACCINES Aged Out No long er eligible based on patient's age to complete this topic HIB VACCINES Aged Out No longer eligi ble based on patient's age to complete this topic MENINGOCOCCAL VACCINES (ACWY) Aged Out No longer eligible based on patient's age to complete this topic MENINGOCOCCAL VACCINES (B) Aged Out N o longer eligible based on patient's age to complete this topic PNEUMOCOCCAL VACCINES (0-49 years) Aged Out No longer eligible based on patient's age to complete this topic Medical Devices Not on file Insurance [employer] Care Teams Frozen Yogurt Maker Relationship Specialty Start Date End Date Pcp, Unknown PCP - General 12/21/24 Additional Source Comments The information contained in this document represents components of the legal health record. It is not the complete legal health record.[facility]
--- NOTE | 2025-04-30 07:30 | PC.NURSE ---
Assumed care, report received. Pt sleeping on the stretcher in the main ED, she wakes easily and is walked to the POD with RN and sitter. Pt is oriented to the POD, security is called for a clothing change and skin check, belongings are secured in Locker [address]. Pt provides a urine sample, VSS. she is given breakfast. She denies SI/HI/AVH. She states I'm not sure what is happening
[2025-04-30 08:21] LABS: Appearance Urine Clear; Glucose Urine UA Negative (Negative); PH 5.5 (5.0-9.0); Specific Gravity - Urine 1.015 (1.005-1.025); UMIC TRIGGER UACC YES
[2025-04-30 08:22] LABS: UPreg QC Valid YES
[2025-04-30 08:24] LABS: Cannabinoid Screen Urine Not Detected (Not Detect)
[2025-04-30 12:49] VITALS: BP 142/87; PULSE 74; RESP 18; TEMP 37.1; O2SAT 98
== END 2025-04-30 12:51 | disposition home or self-care (01) ==
PROVIDERS: Physician Assistant; Emergency Provider Emergency Medicine; PCP Internal Medicine
DX: F10.91 Alcohol use, unspecified, in remission (principal); R45.851 Suicidal ideations; R44.1 Visual hallucinations; Z79.899 Other long term (current) drug therapy
CPT/HCPCS: 80307; 81001; 81025; 96372; 99285; J1630; J3360; S9485